=== PATIENT | female | born 1965 | race African-American/Black ===

== ENCOUNTER 2017-04-27 23:16 | Emergency (ER) | payer OTHER ==
[2017-04-28] MEDS ORDERED: Lidocaine 2% Jelly 5 ML TUBE ONE (01:33)
== END 2017-04-28 04:00 ==
LOC: ERS 23:16
DX: Z43.1 Encounter for attention to gastrostomy (principal); F03.90 Unspecified dementia, unspecified severity, without behavioral disturbance, psychotic disturbance, mood disturbance, and anxiety; F31.9 Bipolar disorder, unspecified; F41.9 Anxiety disorder, unspecified; K59.00 Constipation, unspecified; K21.9 Gastro-esophageal reflux disease without esophagitis; Z79.899 Other long term (current) drug therapy

== ENCOUNTER 2017-04-28 11:57 | Day surgery (SDC) | payer OTHER ==
[2017-04-28] MEDS ORDERED: Lidocaine 1% PF 5 ML VIAL ONE (13:05)
[2017-04-28] MEDS ORDERED: Propofol 200 MG/20 ML VIAL ONE (13:05)
--- NOTE | 2017-04-29 09:24 | OP ---
DATE OF SURGERY: 04/28/2017 SURGEON: Juan Manuel Stevenson M.D. OPERATIVE PROCEDURE: Esophagogastroduodenoscopy with endoscopic gastrostomy tube placement. PREOPERATIVE DIAGNOSES: Dementia, dysphagia. PROCEDURE IN DETAIL: The patient was placed on her back and was given sedation by Anesthesia Department. A bite block was placed to protect the teeth. A Pentax video gastroscope under direct vision passed down the oropharynx, past the GE junction, into the stomach, and subsequently into the descending duodenum. The esophageal mucosa was normal. No incidental lesions. The GE junction, no pathology seen. The fundus, cardia, gastric body, gastric antrum, and duodenum, no pathology seen. The patient had a previous G-tube site. It was elected to use the same site for G-tube placement. A guidewire was introduced into the stomach through the opening. The wire was grasped with polypectomy snare and pulled outside the mouth. To the end of the guidewire protruding outside the mouth, a gastrostomy tube was connected. The wire was pulled back retrograde and the tube left in place. The patient rescoped again to confirm proper placement of G-tube. No complications noted. The stomach was decompressed and the scope removed. DISCHARGE PLANNING: This is a 52-year-old -[place] female who came in for an EGD and PEG tube placement. She underwent surgery. She did well after the procedure. She is being discharged back to the long-term and will start the feeding later on today. [facility]
== END 2017-04-28 15:59 | disposition home or self-care (01) ==
LOC: ER/OP 11:57
PROVIDERS: ATTEND Internal Medicine Gastroenterology
PROC: 0DH63UZ Insertion of Feeding Device into Stomach, Percutaneous Approach (ICD-10-PCS; principal; 2017-04-28)
DX: R13.10 Dysphagia, unspecified (principal); F03.90 Unspecified dementia, unspecified severity, without behavioral disturbance, psychotic disturbance, mood disturbance, and anxiety; F32.9 Major depressive disorder, single episode, unspecified; K21.9 Gastro-esophageal reflux disease without esophagitis; Z79.899 Other long term (current) drug therapy; Z90.710 Acquired absence of both cervix and uterus; Z98.890 Other specified postprocedural states
CPT/HCPCS: 43760; J2001; J2704

== ENCOUNTER 2017-06-29 10:10 | Inpatient (IN) | payer OTHER ==
[2017-06-29] MEDS ORDERED: PHENYLEPHRINE-NS 100 MCG/ML 10 ML SYRINGE ONE ×2 (11:19→19:49)
[2017-06-29] MEDS ORDERED: Succinylcholine Chloride 20 MG/ML 10 ml SYRINGE FS ONE (11:19)
[2017-06-29] MEDS ORDERED: Ondansetron HCl/PF 4 MG/2 ML Vial ONE (11:19)
[2017-06-29] MEDS ORDERED: Glycopyrrolate 0.2 MG/ML 5 ML SYRINGE ONE (11:19)
[2017-06-29] MEDS ORDERED: Iopamidol 370 76% 50 ML VIAL FS ONE (11:48)
[2017-06-29] MEDS ORDERED: ISOVUE-370 76%-LOCM 1 ML ONE (11:48)
[2017-06-29 12:43] LABS: INR-International Normal Ratio 1.2; PTT 33.3 SEC (22.9-36.1); Prothrombin Time 15.7 SEC (12.0-14.7)
[2017-06-29 12:49] LABS: ALT (SGPT) 50 U/L (8-55); AST (SGOT) 122 U/L (5-34); Albumin 2.3 g/dL (3.5-5.0); Alkaline Phosphatase 76 U/L (40-150); Anion Gap 13 mmol/L (10-20); BUN (Urea Nitrogen) 60 mg/dL (9.8-20.1); Bilirubin, Total 0.6 mg/dL (0.2-1.2); CK (CPK) 1525 U/L (29-168); Calc. Creatinine Clearance 0 mL/min (70-130); Calcium 8.6 mg/dL (7.8-10.44); Carbon Dioxide 22 mmol/L (22-29); Chloride 102 mmol/L (98-107); Estimated GFR-MDRD 40; Globulin 5.5 g/dL (2.4-3.5); Glucose 101 mg/dL (70-105); Lipase 53 U/L (8-78); Protein, Total 7.8 g/dL (6.0-8.3); Sodium 132 mmol/L (136-145)
[2017-06-29 12:54] LABS: Troponin I 0.256 ng/mL (< 0.028)
[2017-06-29 13:00] LABS: Band 56 % (5-11); Hemoglobin 12.7 g/dL (12.0-16.0); Lymphocytes 5 % (21-51); MDiff Complete? YES; Macrocytosis SLIGHT = 6-15 cells (100X) (0-5/hpf); Mean Corpuscular HGB CONC 32.6 g/dL (32.0-36.0); Mean Corpuscular Hemoglobin 35.5 pg (27.0-31.0); Mean Platelet Volume 13.6 fL (7.4-10.4); Neutrophil 38 % (42-75); PLT Morphology Comment Appears Decreased; Platelet Count 60 thou/uL (130-400); RBC Distribution Width 12.1 % (11.5-14.5); Reactive Lymphocytes 1 % (0-10); Red Blood Cell (RBC) Count 3.59 mill/uL (4.20-5.40); Reflex for Review?? YES; Target Cells SLIGHT = 2-5 cells (100X) (0-1/hpf); Vacuoles MODERATE; White Blood Cell (WBC) Count 17.7 thou/uL (4.8-10.8)
--- NOTE | 2017-06-29 13:10 | RAD ---
CHEST ONE VIEW: HISTORY: Fever. COMPARISON: Chest one view from 07/07/2016. FINDINGS: There is a patchy left lower lobe air space opacities. Small right effusion. Compressive atelectasi s in the right lower lobe. No pneumothorax. IMPRESSION: 1. Left lower lobe air space opacity, concerning for infection. 2. Small right effusion. Followup after treatment is recommended. POS: [facility]
[2017-06-29 14:13] LABS: Bilirubin Negative (Negative); Blood, Urine Negative (Negative); Clarity CLEAR (Clear); Glucose, Urine (Dipstick) Negative (Negative); Leukocyte Trace (Negative); Nitrite Negative (Negative); Protein, Urine (Dipstick) 30 mg/dL (Neg-Trace); Specific Gravity, Urine 1.033 (1.002-1.036); pH, Urine 5.5 (5.0-9.0)
[2017-06-29] MEDS ORDERED: Piperacillin/Tazobactam 3.375 GM in Sodium Chloride 0.9% 100 ML IVPB SCH ×2 (14:15→19:45)
[2017-06-29 14:26] LABS: Bacteria/HPF None Seen HPF (None Seen); Pathc Cast-AUWi Flag 1.35 (0-2.49)
[2017-06-29 14:42] LABS: Hyaline Casts/LPF 0-3 HYALINE CAST LPF (0-3 Hyaline); Transitional Epithelial 0-3 HPF (0-3); Yeast-All Forms None Seen HPF (None Seen)
[2017-06-29] MEDS ORDERED: Fentanyl 100 MCG/2 ML VIAL ONE (14:44)
--- NOTE | 2017-06-29 14:46 | CT ---
ABDOMEN CT WITH CONTRAST PELVIC CT WITH CONTRAST: Date: 06/29/17 COMPARISON: 08/22/16. HISTORY: Emesis. alf patient. Tachycardia. Patient is aphasic. TECHNIQUE: An abdomen and pelvic CT are performed with IV and oral contrast. Coronal reformatted images are subm itted for interpretation. FINDINGS: Small to moderate right and minimal left sided pleural effusions. Adjacent consolidation may be due t o atelectasis, pneumonia, or aspiration. There is a 2.0 cm bulla in the right lung parenchyma. Heart size is within normal limits. No pericardial fluid. The descending thoracic aorta and abdominal aorta have normal caliber. No periaortic fat stranding. Limited evaluation of the abdomen due to motion degradation. The liver, spleen, pancreas, and adrenal glands have appropriate enhancement. Gallbladder is unremarkable. Symmetric enhancement of the kidneys. Bilaterally, no obstructive uropathy. No gastrohepatic, retrocrural, or periportal lymphadenopathy. No mesenteric mass, lymphadenopathy, free air, or free fluid. Percutaneous feeding tube is noted within the stomach. Multiple normal caliber small bowel loops. Ileocecal junction is normal. Normal caliber appendix. Air attenuation in the wall of the cecum and ascending colon. This air attenuation also extends in the p roximal ascending colon. Air is in the nondependent portion. There is concern for pneumatosis. PELVIC CT: Urinary bladder is unremarkable. Surgically absent uterus. No pelvic mass, lymphadenopathy, free air, or free fluid. Chronic changes in the spine are noted. IMPRESSION: 1. Pneumatosis involving the right hemicolon. 2. Bilateral pleural effusions with bibasilar consolidation as described above. Results of study discussed with Mag on 06/29/17 at 1430 hours. CODE CR. POS: [facility]
[2017-06-29] MEDS ORDERED: Norepinephrine 8 MG/250 ML BAG IVPB PRN (15:40)
[2017-06-29 17:33] LABS: Lactic Acid 6.7 mmol/L (0.5-2.2)
--- NOTE | 2017-06-29 18:18 | CON ---
DATE OF CONSULTATION: 06/29/2017 CONSULTING PHYSICIAN: Dr. Juventino Martinez from the Hospitalist group. REASON FOR CONSULTATION: Critical care management. HISTORY OF PRESENT ILLNESS: This is a 52-year-old female who has a history of a traumatic brain inju ry. She was brought into the emergency room today with sepsis type syndrome. She does not communica te with anything more than just screens and while gestures with her arms. PAST MEDICAL HISTORY: 1. 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 2. Dementia. PAST SURGICAL HISTORY: PEG tube placement in the past, also hysterectomy. ALLERGIES: None. SOCIAL HISTORY: Does not smoke, does not drink, does not consume alcohol. Lives in a long-term [facility]. MEDICATIONS: Prior to admission, trazodone 50 mg daily, Claritin 10 mg daily, folate 1 mg daily, Luciano cept 10 mg daily, docusate 100 mg b.i.d., Depakote 750 mg b.i.d., vitamin B12 1000 mcg daily, sorbitr ate acid 500 mg b.i.d., acetaminophen 650 mg as needed. REVIEW OF SYSTEMS: Unobtainable secondary to her altered mental status. PHYSICAL EXAMINATION: VITAL SIGNS: Pulse is 128, O2 sat 94%, respiratory rate 33, blood pressure 210/100. GENERAL: She is following in bed, screams any time you touch her. HEENT: Her pupils are reactive. Oropharynx clear. NECK: No JVD. LUNGS: Clear to auscultation anteriorly. CARDIOVASCULAR: S1, S2 tachycardic. ABDOMEN: Mildly tender to palpation on the right. EXTREMITIES: Mottled. LABORATORY DATA: Sodium 132, potassium 5, chloride 102, CO2 22, BUN 60, creatinine 1.6, glucose 101, lactate 4.6. CPK 1525. Troponin 0.26. INR 1.2. White blood count 17.7, hematocrit 39.1, platelet count 60. Her CT of the abdomen demonstrated air in the wall of the right colon. She also has bila teral small effusions. ASSESSMENT: 1. Likely ischemic right colon and possibly even infarcted colon. 2. Sepsis syndrome. PLAN: The patient is DNR. I have spoken with Dr. Martinez. The plan is to be fluid resuscitation, Le vophed as needed. She may end up going to the OR if felt stable enough by Dr. Young. I have revie wed the orders and agree with current management.
[2017-06-29] MEDS ORDERED: Midazolam HCl 2 mg/2 ml Vial ONE ×2 (19:32→20:27)
[2017-06-29] MEDS ORDERED: Fentanyl 250 MCG/5 ML VIAL ONE ×3 (19:32→19:52)
[2017-06-29] MEDS ORDERED: Albumin 5% 500 ML ONE (19:47)
[2017-06-29] MEDS ORDERED: Bupivacaine/Epinephrine 0.25% 30 ML VIAL ONE (20:03)
[2017-06-29] MEDS ORDERED: Phenylephrine 10 MG/NS 250 ML 250 ML ONE (20:11)
[2017-06-29] MEDS ORDERED: Piperacillin/Tazobactam 3.375 GM VIAL ONE (20:32)
--- NOTE | 2017-06-29 20:52 | CON ---
DATE OF CONSULTATION: 06/29/2017 CHIEF COMPLAINT: Vomiting and tachycardia. HISTORY: Ms. Lopes is a 52-year-old noncommunicative woman with advanced dementia, who was in her [facility] state of health by report from the retirement until yesterday when she began throwing up. Thi s morning she looked worse, so they brought her into the emergency room where she was found to be sig nificantly tachycardic and agitated. The source of her agitation could not be determined although by report she is somewhat agitated at baseline. Therefore, a CT of chest, abdomen, and pelvis was perf ormed which showed atelectasis versus infiltrate as well as pneumatosis of the right colon. The tanvi ent is completely noncommunicative. Her mother was at the bedside earlier, but has since left, and n o further recent history is available or obtainable. PAST MEDICAL HISTORY: Includes dementia, dysphagia, contractures due to nonambulatory bed bound stat us, history of depression. PAST SURGICAL HISTORY: Hysterectomy and multiple PEG tube placements by Dr. Stevenson. ALLERGIES: She has no known drug allergies. MEDICATION LIST: From the retirement includes multiple vitamins, Aricept, trazodone, Depakote, and Prostat. PHYSICAL EXAMINATION: VITAL SIGNS: The patient is significantly tachycardic with a heart rate of 130. Blood pressure is n ormal. Respiratory rate is somewhat elevated, but O2 sats on room air are normal as well. GENERAL: Reveals a somewhat consolable 52-year-old woman in an agitated state, moving about in the b ed, and pulling up things. She is unable to follow commands or respond to questions, but does calm d own somewhat to soothing kind of voice. She is not flushed or toxic, but she is slightly diaphoretic . HEENT: Unremarkable. NECK: Supple, without lymphadenopathy or thyroid nodules. HEART: Tachycardic, but regular without murmurs, rubs, or gallops. LUNGS: Clear to auscultation anteriorly although lung sounds are difficult to hear due to frequent v ocalization. ABDOMEN: Nondistended, but firm. Bowel sounds are not appreciated. She is not rigid, but may have some guarding. She does not exhibit definite rebound, but examination is very difficult to interpret . No palpable masses or hernias. PEG tube is in place with some clear fluid on the dressings consis tent with drainage around the PEG tube. EXTREMITIES: Contracted in cross legged position. She has a decubitus ulcer of the underlying foot, but no erythema or streaking. There is some soft stool in the diaper, which is not grossly bloody. NEUROLOGIC: Contracted lower extremities, nonverbal, patient with severe dementia. PSYCHIATRIC: Unable to evaluate. LABORATORY DATA: White count is elevated at 17,000. She had some labs drawn yesterday morning and h er white count was elevated at 18,000. At that time, H&H are 12 and 39, which are up somewhat from h er baseline. Platelets are low at 60, but seemed to have run low for some time now. Her coags are u nremarkable. Her electrolytes show acute renal insufficiency with a BUN of 60 and a creatinine of 1. 62. This is up from her baseline of 29 and 0.71 back in May and yesterday she was 33 and 1.41. Lactate is high at 4.6, CK-MB is high at 12. Troponin is high at 0.256. CK yesterday was high at 1 525. UA shows trace ketones and 30 protein, trace leukocyte esterase. CT images are reviewed and I agree with the written report. The patient appears to have fairly widespread pneumatosis of her righ t colon. No free air, no significant free fluid. The patient has a surgically absent uterus. ASSESSMENT: Pneumotosis coli. It is unclear whether this was a precipitating event or a consequence of severe dehydration. She has acute renal insufficiency and need resuscitation and antibiotics and careful monitoring of her urine output. If her condition does not improve, she will require diagnos tic laparoscopy and if evidence of colon ischemia is seen, then a right colectomy would be recommende d. The patient's family is not currently available and she has just lost her IV access. The ER is w orking on further resuscitating her. I will continue to follow closely and she will likely proceed t o the operating room later tonight or tomorrow.
--- NOTE | 2017-06-29 22:25 | RAD ---
PORTABLE CHEST 06/29/17 PROVIDED CLINICAL HISTORY: Central line placement. FINDINGS/IMPRESSION: Comparison is made with the study dated 06/29/17, time 12:31 p.m. Examination is rotated, limiting assessment. Interval placement of right sided IJ central line with t ip overlying the expected location of the SVC/right atrium junction. Additional significant interval change with respect to the prior examination is not apparent. There is no evidence for pneumothorax. POS: [facility]
[2017-06-30] MEDS ORDERED: HumaLOG 300 UNITS/3 ML VIAL SC PRN (00:06)
[2017-06-30] MEDS ORDERED: Dextrose 5% in Water 1,000 ML IV PRN (00:06)
[2017-06-30] MEDS ORDERED: Norepinephrine 8 MG/0.9% NS 250 ML IVPB SCH (00:06)
[2017-06-30] MEDS ORDERED: Dextrose 50% Abboject 50 ML SYRINGE SLOW IVP PRN (00:06)
[2017-06-30] MEDS ORDERED: Morphine 2 MG/ML SYRINGE SLOW IVP PRN ×2 (00:20)
[2017-06-30] MEDS ORDERED: Morphine 10 MG/ML CARPUJECT SLOW IVP PRN ×2 (00:21→00:22)
[2017-06-30] MEDS ORDERED: Piperacillin/Tazobactam 4.5 GM in Sodium Chloride 0.9% 100 ML IVPB SCH ×2 (00:30→03:00)
[2017-06-30] MEDS ORDERED: Pantoprazole 40 MG VIAL IVP SCH (00:30)
[2017-06-30] MEDS ORDERED: Norepinephrine 8 MG/0.9% NS 250 ML IVPB PRN (01:15)
[2017-06-30] MEDS: Sodium Chloride 0.9% 1,000 ML IV SCH ×4 (01:30→18:28)
[2017-06-30 01:31] LABS: Anion Gap 15 mmol/L (10-20); BUN (Urea Nitrogen) 42 mg/dL (9.8-20.1); CK (CPK) 789 U/L (29-168); Calc. Creatinine Clearance 74 mL/min (70-130); Calcium 7.7 mg/dL (7.8-10.44); Carbon Dioxide 17 mmol/L (22-29); Chloride 108 mmol/L (98-107); Estimated GFR-MDRD 61; Glucose 61 mg/dL (70-105); Magnesium 1.5 mg/dL (1.6-2.6); Phosphorus 3.9 mg/dL (2.3-4.7); Potassium 4.9 mmol/L (3.5-5.1); Sodium 135 mmol/L (136-145)
[2017-06-30 01:34] LABS: Troponin I 0.169 ng/mL (< 0.028)
[2017-06-30 01:40] LABS: Band 35 % (5-11); Hemoglobin 9.8 g/dL (12.0-16.0); Lymphocytes 9 % (21-51); MDiff Complete? YES; Mean Corpuscular Hemoglobin 36.1 pg (27.0-31.0); Mean Platelet Volume 13.2 fL (7.4-10.4); Monocytes 6 % (0-10); Neutrophil 50 % (42-75); PLT Morphology Comment Appears Decreased; Platelet Count 45 thou/uL (130-400); RBC Distribution Width 12.3 % (11.5-14.5); Red Blood Cell (RBC) Count 2.71 mill/uL (4.20-5.40); White Blood Cell (WBC) Count 15.3 thou/uL (4.8-10.8)
[2017-06-30 01:47] LABS: CKMB 10.2 ng/mL (0-6.6); Critical Call CKMBM RESULT DECREASING
[2017-06-30] MEDS: Acetaminophen 1,000 MG in Premix Bag 1 BAG IVPB SCH ×4 (02:17→20:22)
[2017-06-30] MEDS: Piperacillin/Tazobactam 3.375 GM in Sodium Chloride 0.9% 100 ML IVPB SCH ×4 (02:37→20:23)
[2017-06-30] MEDS: Vancomycin HCl 750 MG in Sodium Chloride 0.9% 250 ML 250 ML IVPB SCH ×2 (05:18→18:26)
[2017-06-30 06:18] LABS: CKMB 8.3 ng/mL (0-6.6); Critical Call CKMBM RESULT DECREASING
[2017-06-30 06:20] LABS: Band 39 % (5-11); Eosinophils 1 % (0-10); Hemoglobin 8.6 g/dL (12.0-16.0); Lymphocytes 6 % (21-51); MDiff Complete? YES; Mean Corpuscular HGB CONC 32.4 g/dL (32.0-36.0); Mean Corpuscular Hemoglobin 35.9 pg (27.0-31.0); Mean Platelet Volume 13.2 fL (7.4-10.4); Monocytes 4 % (0-10); Neutrophil 50 % (42-75); PLT Morphology Comment Appears Decreased; Platelet Count 45 thou/uL (130-400); Red Blood Cell (RBC) Count 2.41 mill/uL (4.20-5.40); White Blood Cell (WBC) Count 13.3 thou/uL (4.8-10.8)
[2017-06-30 06:23] LABS: ALT (SGPT) 36 U/L (8-55); AST (SGOT) 84 U/L (5-34); Albumin 2.1 g/dL (3.5-5.0); Alkaline Phosphatase 43 U/L (40-150); Anion Gap 12 mmol/L (10-20); BUN (Urea Nitrogen) 39 mg/dL (9.8-20.1); Bilirubin, Total 0.8 mg/dL (0.2-1.2); CK (CPK) 640 U/L (29-168); Calc. Creatinine Clearance 80 mL/min (70-130); Calcium 7.8 mg/dL (7.8-10.44); Carbon Dioxide 21 mmol/L (22-29); Chloride 110 mmol/L (98-107); Estimated GFR-MDRD 67; Globulin 3.6 g/dL (2.4-3.5); Glucose 72 mg/dL (70-105); Lactic Acid 4.1 mmol/L (0.5-2.2); Magnesium 1.5 mg/dL (1.6-2.6); Phosphorus 3.9 mg/dL (2.3-4.7); Potassium 4.7 mmol/L (3.5-5.1); Protein, Total 5.7 g/dL (6.0-8.3); Sodium 138 mmol/L (136-145)
--- NOTE | 2017-06-30 11:10 | PDOC.OP ---
Operative Note - Operative Note Operative Note: PROCEDURE: Diagnostic laparoscopy DATE OF PROCEDURE: 06/29/2017 SURGEON: Shane Young M.D. ASST.: Jane Fulton MS 3 PREOPERATIVE DIAGNOSES: Pneumatosis of the right colon POSTOPERATIVE DIAGNOSIS: Viable appearing right colon and intestine without any external evidence of inflammation or ischemia. HISTORY: Patient is a 52-year-old woman with severe dementia who [facility] room for vomiting and tachycardia and concern for pneumonia. CT of the abdomen showed pneumatosis of the right colon and she had an elevated lactate and White blood cell count. She was resuscitated with fluids and given IV antibiotics but her tachycardia and apparent distress persisted so recommendation was made to proceed with diagnostic laparoscopy and possible hemicolectomy and ileostomy if the colon appeared nonviable PROCEDURE IN DETAIL: After informed consent was obtained from the patient's mother who is her medical power of gearcase assembler and appropriate preoperative antibiotics were continued the patient was taken to the operating room she was placed in supine position and general endotracheal anesthesia was administered. She was prepped and draped in a standard sterile fashion with the PEG tube excluded from the field. Local anesthesia was infused the skin and subcutaneous tissues at the level of the umbilicus. A transverse skin incision was made the fascia was elevated and Veress needle placed into the abdominal cavity without difficulty. Opening pressure was 2 and carbon dioxide gas easily insufflated to an intra-abdominal pressure of 15 which the patient tolerated well. The Veress needle was withdrawn and a 5 mm [place] port advanced under direct laparoscopic vision into the abdominal cavity which was carefully examined. There is no evidence of necrotic bowel or peritonitis. There was no fluid noted in the abdominal cavity. Local anesthesia was infused the skin and subcutaneous tissues of the lower midline and an additional 5 mm ports placed under direct laparoscopic vision. The right colon was carefully examined and appeared to be completely viable. There is some chronic-appearing adhesions to the lateral sidewall which were not taken down but there was no evidence of inflammation or ischemia and the colon appeared soft pink and normal. The remainder of the intra -abdominal contents were briefly examined and no other abnormal inflamed or ischemic appearing bowel loops were appreciated. The lower midline trocar was removed and hemostasis verified. The intra-abdominal dioxide was allowed to desufflate following which the umbilical trocar was removed. Due to the patient' s thin body habitus the fascia was visible at the umbilical site so this was closed under direct vision with 0 Vicryl on a UR 6 needle with excellent technical result. The skin incisions were closed with 4-0 Monocryl subcutaneous sutures and Dermabond dressings were placed. The patient was taken to the recovery room in good condition. Estimated blood loss minimal. There were no complications. There were no specimens.
--- NOTE | 2017-06-30 11:36 | PRG ---
DATE OF SERVICE: 06/30/2017 Ms. Lopes is sleeping today. She is much calmer and less agitated than she was yesterday. T-max wa s 100.3 and T-current is 98.6. Her heart rate has steadily come down from the 130s and is now in the 100 range. Her blood pressure has been running on the low to low-normal side, but her urine output has been good, and her other labs are correcting. Her white count has gone from 17,000-13,000 and he r BUN and creatinine have come down to 39 and 1.04. Her lactate is somewhat slower to correct, but h as come down to 4.1 from a high of 8.6. Her creatine kinase has come down from 1500-640. Her abdome n is soft and nondistended. She does not exhibit any tenderness when I palpated her abdomen, and she has no rigidity, rebound, or guarding today. ASSESSMENT: Pneumotosis coli of unclear etiology. This may be infectious or ischemic. Given the anton sy's overall clinical appearance, I would suspect the latter, but this appears to be slowly resolv ing. I have put in a consult for Dr. Stevenson, who is her organ tuner electronic to further evaluate he r and I have ordered stool samples, although she has not produced a stool sample yet. I will continu e to follow her along with the medical team, but she does seem to be slowly responding to medical medina atment, and I do not anticipate any imminent need for surgery.
--- NOTE | 2017-06-30 12:38 | PRG ---
DATE OF SERVICE: 06/30/2017 SERVICE: Pulmonary Medicine. INTERVAL HISTORY: The patient is doing okay from a respiratory standpoint. He is breathing comforta eric. Outside of that, I cannot really glean any information from her because of her static encephalo clarke. Otherwise, there were no events overnight. PHYSICAL EXAMINATION: VITAL SIGNS: Afebrile, pulse 97, blood pressure 94/44, respirations 24, saturation 100% on 2 liters nasal cannula. GENERAL: The patient is awake. She is alert, but she does not attend. HEENT: Normocephalic, atraumatic. Sclerae are white, conjunctivae pink. Oral mucosa is moist witho ut lesions. LUNGS: Decent air entry. There are some rhonchi present. HEART: Normal rate, regular. ABDOMEN: Soft, nontender, nondistended. Bowel sounds are hypoactive. GENITOURINARY: Orr catheter in place. LABORATORY DATA: WBC 13.3, hemoglobin 8.6, platelets 45,000. Neutrophil count is 50% with 39% bands which is up trending. INR 1.2. Lactate is decreasing to 4.1. Creatinine 1.04 and down trending. Basic metabolic profile is otherwise unremarkable. Magnesium is 1.5. CK 640. Liver function studie s are otherwise unremarkable. Troponin is stable at 0.17. Lipase was previously unremarkable. Urin alysis is unremarkable. One out of two blood cultures is growing coag negative staph. Urine culture is negative to date as well as influenza. IMAGING: Chest x-ray demonstrates severe rotation of the chest. There are some air bronchograms ove rlying the left lung. There is a right IJ that is in good position. No evidence for pneumothorax is there. Minor fissure is evident suggestive of some degree of volume overload. CT of abdomen and pe lvis demonstrates pneumatosis coli with small bilateral pleural effusions are also present. ASSESSMENT: 1. Septic shock secondary to peritonitis. 2. Pneumatosis coli. 3. 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 4. Acute kidney injury, resolving. PLAN: We will continue antibiotic directed at issues. Pulmonary Critical Care will continue to f ollow for the time being. Levophed will be weaned away as tolerated. Magnesium will be replaced and we will recheck another level tomorrow morning. The patient remains critically ill and there is a p ossibility that things will get worse before they improved. At this point, she is protecting her air way and does not require intubation. Pulmonary Critical Care will continue to follow.
[2017-06-30] MEDS ORDERED: Magnesium 2 GM/NS 0.9% 100 ML 2 GM in Premix Bag 1 BAG IVPB SCH ×4 (13:30)
--- NOTE | 2017-06-30 15:24 | PDOC.PN ---
- Subjective Encounter Start Date: 06/30/17 Encounter Start Time: 08:45 Pt seen earlier on rounds. Taken to Or last evening by Dr Young for exploratory laparoscopy. Bowel appeared viable, no resection made. recommended resuscitation. PT BP better, weaned off of Levophed after adequate fluids Pt sleepy, but earlier was active as she was [facility] labs better, afebrile, no acute events otherwise noted. pt nonverbal - Objective Resuscitation Status: DNR MAR Reviewed: Yes Vital Signs & Weight: Vital Signs (12 hours) Temp Pulse Resp BP Pulse Ox 06/30/17 12:10 99 F 97 20 06/30/17 12:00 99.0 F 97 20 89/54 L 100 06/30/17 08:45 98.6 F 109 H 24 H 100 06/30/17 07:38 98.6 F 109 H 24 H 94/44 L 100 06/30/17 06:20 98.8 F 107 H 22 H 96/51 L 100 06/30/17 05:11 99.3 F 107 H 20 92/46 L 100 Weight Admit Weight 180 lb 1 oz Weight 180 lb 1 oz I&O: 06/29/17 06/30/17 07/01/17 06:59 06:59 06:59 Intake Total 1200 1400 Output Total 710 550 Balance 490 850 Result Diagrams: 06/30/17 05:15 06/30/17 05:15 Additional Labs: Accuchecks 06/30/17 06/30/17 11:47 05:49 POC Glucose 75 76 Radiology Reviewed by me: Yes EKG Reviewed by me: Yes Phys Exam - Physical Examination Constitutional: NAD HEENT: moist MMs, sclera anicteric, oral pharynx no lesions Neck: no nodes, no JVD, supple, full ROM Respiratory: no wheezing, no rales, no rhonchi, clear to auscultation bilateral Cardiovascular: RRR, no significant murmur, no rub reg but tachy Gastrointestinal: soft, no distention, positive bowel sounds Musculoskeletal: pulses present, edema present Neurological: non-focal, moves all 4 limbs Lymphatic: no nodes Skin: no rash, normal turgor, cap refill <2 seconds Dx/Plan (1) Pneumatosis coli Code(s): K63.89 - OTHER SPECIFIED DISEASES OF INTESTINE Status: Acute Comment: s/p lap last evening, medical rx for now. Abx, fluids, pressors if needed. Surgey following (2) Septic shock Code(s): A41.9 - SEPSIS, UNSPECIFIED ORGANISM; R65.21 - SEVERE SEPSIS WITH SEPTIC SHOCK Status: Acute Comment: off pressors, LA improving. continue aggressive IV fluids (3) NSTEMI (non-ST elevated myocardial infarction) Code(s): I21.4 - NON-ST ELEVATION (NSTEMI) MYOCARDIAL INFARCTION Status: Acute Comment: due to severe sepsis with shock. trending down. (4) KAE (acute kidney injury) Code(s): N17.9 - ACUTE KIDNEY FAILURE, UNSPECIFIED Status: Acute Comment: Cr improved this morning, continue IV fluids - Plan cont current plan of care, continue antibiotics * .
[2017-06-30] MEDS ORDERED: Sodium Chloride 0.9% 1,000 ML IV SCH (15:45)
--- NOTE | 2017-06-30 17:35 | HP ---
DATE OF ADMISSION: 06/29/2017 TIME OF SERVICE: 15:00. CHIEF COMPLAINT: One-day history of nausea and vomiting. HISTORY OF PRESENT ILLNESS: Ms. Lopes is a 52-year-old -[place] female, who is nonverbal. She sustained a brain injury 7 or 8 years ago and is non-conversant. She is a resident of a [facility]. She gets tube feeds and is completely aphasic. Patient apparently had some nausea and vomiting and increased heart rate and was sent by her snf to the emergency department for evaluation. They reported no fever; however, the family does re port that she had a fever while at the snf and then was given medicines for that and had no further recurrence. She started having problems about 2 days ago, worsened yesterday, and was subsequently brought to the emergency department the day of admission on 06/29/2017 for evaluation. I spoke at length with the mother on the telephone; the patient is DNR. They do not want to do CPR, electrical shocks, oral intubation, or BiPAP mask, but the pressors are okay. In the emergency department, she got some fluids. She got a CT scan of the abdomen. She was found t o have a white blood cell count of 17.7 with a left shift, 30% granulocytes and 56% bands. She has h ad a platelet count low at 60,000. She had lactic acid of 5, troponin I of 0.256, and a creatinine u p 1.62, which is more than double her normal. We are simply called for admission and placed on telem etry. On my arrival, the patient abruptly decompensated. She became hypotensive and tachycardic. Blood pr essure was 54/27 and heart rate was in the 130s. The ER doctor immediately came and placed a central venous catheter and resumed IV fluids. Apparently, she had lost her IV during the CT scan. The patient is otherwise nonverbal. She is crying out and has some obvious discomfort. PAST MEDICAL HISTORY: 1. Dementia. 2. 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 She is n.p.o. and gets all of her meds and feedings through the gastrostomy tube. 3. Stage 4 pressure ulcer in the past has healed. 4. Bipolar disorder. 5. Depression/anxiety. 6. GERD. PAST SURGICAL HISTORY: Include, 1. PEG tube placement. 2. Hysterectomy. HOME MEDICATIONS: Trazodone 50 mg daily, Depakote 125/5, 7.5 mL b.i.d., which becomes to about 187.5 mg. ALLERGIES: NKDA. FAMILY HISTORY: Negative for clotting or bleeding disorder. No immune dysfunction. SOCIAL HISTORY: Negative for habits x3. Otherwise, as above. REVIEW OF SYSTEMS: Unobtainable due to mental status and aphasia. PHYSICAL EXAMINATION: VITAL SIGNS: Temperature 98.1, pulse 126, blood pressure initially on arrival to the ER 115/78, resp iratory rate 26, satting 95% on room air; when I saw her she was 136, blood pressure 54/27 with a res piratory rate 25-30. GENERAL: She is diaphoretic. She is crying out and thrashing around. She is acutely ill. HEENT: Normocephalic, atraumatic. She has bilateral strabismus. Pupils are equal, round, and react juan miguel to light bilaterally. Mucous membranes are dry. She has no visible lesions. NECK: Supple. Normal carotid upstrokes without bruits. LUNGS: Clear are anteriorly; however, laterally and posteriorly, she does have some crackles heard a t both bases, left more than right. She has no prolonged expiratory phase. No wheezes. CARDIOVASCULAR: She is tachycardic and regular. I cannot appreciate murmurs. ABDOMEN: Abdomen is hard. It is not wood like, but it is certainly firm. She does have some obviou s discomfort with palpation diffusely. There is no rebound appreciable. A percutaneous endoscopic g astrostomy tube is intact. EXTREMITIES: Show no cyanosis, no clubbing. She has no edema. SKIN: Warm, moist, and well perfused without rashes or lesions. There is no mottling. NEUROLOGIC EXAM: Not testable, but she is moving all 4 of her extremities. MUSCULOSKELETAL EXAM: Normal to inspection. She has no palpable joint effusion. No inflamed joints . LABORATORY DATA: Sodium 132, potassium 5.0, chloride 102, bicarb 22, BUN 60, creatinine 1.62 and her baseline 0.7, glucose 101. Liver functions showed AST of 126, ALT of 50. Albumin is low at 2.3. CBC showed a white count of 17.7, the differential above, hemoglobin is 12.7, hematocrit of 39.1, juan telets of 60,000. CK is 1525, CK-MB of 12. Lactic acid 4.6, troponin I 0.256. RADIOGRAPHIC STUDIES: CT of the abdomen and pelvis shows right hemicolon pneumatosis. Chest x-ray showed a [id number] right and minimal left pleural effusions with adjacent atelect asis. ASSESSMENT AND PLAN: 1. Septic shock: The patient dropped her blood pressure despite getting fluids in the ER. We place d her on Levophed and gave her a total of 3 more liters of fluids. We will admit her to the critical care unit. Pressors is the maximal level of care we can provide. Dr. Young saw the [facility], suspects the source being her colon. We will contact her and let her know the current status and see if she thinks the patient is to go to surgery this evening. 2. Acute kidney injury: Creatinine 1.62. Secondary to septic shock, we will encourage use of IV fl uids. Watch for fluid overload. 3. Demand ischemia. Troponin I 0.256 due to her tachycardia and low blood pressure. 4. History of encephalopathy, chronic, due to her brain injury in the past. The patient was placed on broad-spectrum antibiotic with Zosyn. We will continue IV fluids and press ors tonight. We will ask Pulmonary Critical Care to evaluate and follow up on surgery recommendation s. Forty-five minutes of critical care was spent at the bedside.
[2017-06-30] MEDS: Pantoprazole 40 MG VIAL IVP SCH (20:22)
[2017-07-01] MEDS: Sodium Chloride 0.9% 1,000 ML IV SCH ×3 (02:32→13:59)
[2017-07-01] MEDS: Acetaminophen 1,000 MG in Premix Bag 1 BAG IVPB SCH (02:32)
[2017-07-01] MEDS: Piperacillin/Tazobactam 3.375 GM in Sodium Chloride 0.9% 100 ML IVPB SCH ×4 (02:32→20:15)
[2017-07-01] MEDS: Vancomycin HCl 750 MG in Sodium Chloride 0.9% 250 ML 250 ML IVPB SCH ×2 (05:36→06:39)
[2017-07-01 06:24] LABS: Anion Gap 9 mmol/L (10-20); BUN (Urea Nitrogen) 34 mg/dL (9.8-20.1); Calc. Creatinine Clearance 98 mL/min (70-130); Calcium 7.2 mg/dL (7.8-10.44); Carbon Dioxide 20 mmol/L (22-29); Chloride 113 mmol/L (98-107); Estimated GFR-MDRD 83; Glucose 62 mg/dL (70-105); Magnesium 1.3 mg/dL (1.6-2.6); Potassium 4.2 mmol/L (3.5-5.1); Sodium 138 mmol/L (136-145)
[2017-07-01 06:36] LABS: Vancomycin, Trough 14.3 ug/mL
[2017-07-01 07:10] LABS: Hemoglobin 9.2 g/dL (12.0-16.0); Mean Corpuscular HGB CONC 32.3 g/dL (32.0-36.0); Mean Corpuscular Hemoglobin 35.6 pg (27.0-31.0); Platelet Count 55 thou/uL (130-400); Red Blood Cell (RBC) Count 2.58 mill/uL (4.20-5.40)
[2017-07-01 07:46] LABS: #Basophils 0.1 thou/uL (0.0-0.2); #Eosinphils 0.4 thou/uL (0.0-0.7); #Lymphocytes 1.2 thou/uL (1.20-3.40); #Monocytes 0.5 thou/uL (0.11-0.59); #Neutrophils 4.9 thou/uL (1.40-6.50); %Neutrophils 68.8 % (42.0-75.0)
[2017-07-01 07:47] LABS: Band 35 % (5-11); Eosinophils 7 % (0-10); Lymphocytes 17 % (21-51); MDiff Complete? YES; Monocytes 7 % (0-10); Neutrophil 33 % (42-75); PLT Morphology Comment Appears Decreased; Polychromasia SLIGHT = 2-3 cells (100X) (0-2/hpf)
[2017-07-01] MEDS ORDERED: Magnesium Sulfate 4 GM in Sodium Chloride 0.9% 250 ML 250 ML IVPB SCH (08:15)
--- NOTE | 2017-07-01 08:28 | CON ---
DATE OF CONSULTATION: 06/30/2017 REFERRING PHYSICIAN: Dr. Shane Young - Dr. Juventino Martinez. REASON FOR CONSULTATION: Abdominal pain, vomiting, hypotension, abnormal CAT scan of the abdomen. HISTORY OF PRESENT ILLNESS: Ms. Diana Lopes is a 52-year-old female who is known to me from before. The patient has advanced dementia, a nonspecific neurological disorder. The pat ient is nonverbal. The patient is a senior care resident. The patient has had EGD and PEG tube juan cement done by me on multiple occasions. The patient has had dementia, dysphagia, and also contractu res of the extremities for several years. She also has history of depression. The patient was sent to the ER from the senior care yesterday morning because of hypotension and tachycardia and what vicente ears like sepsis. Since admission, the patient was seen by Dr. Young. An abdominal CAT scan done showed pneumatosis over the right colon area. The patient underwent a laparoscopy yesterday and as p er the operative report by Dr. Young, the colon was viable and did not show any evidence of ischemi c changes. It is not very clear what caused pneumatosis and hypotension. The possibilities include infectious colitis versus ischemic bowel disease. The patient also had tachycardia, hypotension, and also lactic acidosis. She has been receiving IV fluids and also Levophed for a while. She . Her blood pressure was around 90/62 and when I saw her this evening, the pressure was 102/47. The pa tient is actually back to close her baseline status. She is awake and nauseous. She appears comfort able. The patient's lab data show evidence of dehydration with what appears to be acute kidney injur y. Other abdominal findings include leukocytosis, bandemia of 56%. Today, the bands started c oming down to 39%. She is passing urine. The patient has no other relevant history. MEDICAL ILLNESSES: 1. Dementia. 2. Nonspecific neurological disorder. 3. Depression. 4. Dysphagia. 5. Hysterectomy. 6. EGD and PEG tube placement. ALLERGIES: None. SOCIAL HISTORY: The patient does not smoke or drink alcohol. MEDICATIONS: Include multiple vitamins, Aricept, trazodone, Depakote, and also tube feeding. REVIEW OF SYSTEMS: Unobtainable. PHYSICAL EXAMINATION: GENERAL: The patient is awake, makes some loud noises. She is in no distress. VITAL SIGNS: Today, her temperature is 98 degrees Fahrenheit, pulse is around 88, blood pressure 102 /47. HEENT: Conjunctivae clear. NECK: Supple. CARDIOVASCULAR SYSTEM: First and second heart sounds normal. LUNGS: Clear to auscultation. ABDOMEN: Soft and nondistended. She has a PEG tube . Abdomen is nontender. She does have bow el sounds. LABORATORY DATA: Yesterday, WBC 17,700, hemoglobin low at 8, hematocrit 26.8. The patient had bande cedric of 56% yesterday, has dropped to 39% today. Her BUN and creatinine are elevated at 39 and 1.4, r espectively. Lactic acid is 4.1. Her CPK total is high and also her CPK-MB fraction is high. There is possibility of NSTEMI infarction. CLINICAL IMPRESSION: 1. Hypotension, shock, and tachycardia. The patient had pneumatosis on CAT scan. It was confirmed by laparoscopy. However, as per the operative report, the colon does not appear to be necrotic or is chemic and appears viable and healthy. The etiology of her symptoms is unclear at the present time. The patient most likely has sepsis and there is also possibility of underlying ischemic bowel disea se. 2. Dementia. 3. Dysphagia. 4. Depression. 5. Dxd-LT-vpjzvfudn myocardial infarction. 6. Acute kidney injury. RECOMMENDATIONS: 1. The patient seems to be actually getting better. . Her blood pressure is around 99 to 100 at the present time. Her tachycardia has come down. Although her abdominal exam is actually very prashanth ign at the present time. Recommendation to hold the tube feeding for the time being. 2. Continue IV fluids and supportive care and if she does well, we may consider starting the tube ba ck in the next 24-48 hours.
[2017-07-01] MEDS ORDERED: FLU VACC QS2017-18 36 mo. & older 0.5 ML SYRINGE IM ONE (09:00)
--- NOTE | 2017-07-01 12:23 | PDOC.PN ---
- Subjective Encounter Start Date: 07/01/17 Encounter Start Time: 08:50 -: non-verbal pt much more awake and alert today, calm, gromaces with abd palpation, light or deep. no F/C, no N/V/D/C, TF not restarted yet. No acute events reported overnight. off pressors, BP stable case discussed with Dr Flynn face to face at the bedside, vanc stopped. - Objective Resuscitation Status: dnr MAR Reviewed: Yes Vital Signs & Weight: Vital Signs (12 hours) Temp Pulse Resp BP Pulse Ox 07/01/17 08:00 98.2 F 95 20 97 07/01/17 07:39 98.2 F 95 20 101/57 L 97 07/01/17 04:00 99 24 H 98/61 99 Weight Admit Weight 180 lb 1 oz Weight 183 lb 3 oz I&O: 06/30/17 07/01/17 07/02/17 06:59 06:59 06:59 Intake Total 1200 4325 350 Output Total 710 1690 270 Balance 490 2635 80 Result Diagrams: 07/01/17 05:35 07/01/17 05:35 Additional Labs: Accuchecks 07/01/17 06/30/17 06/30/17 11:34 23:58 17:36 POC Glucose 73 70 68 L Phys Exam - Physical Examination Constitutional: NAD HEENT: PERRLA, moist MMs, sclera anicteric, oral pharynx no lesions Neck: no nodes, no JVD, supple, full ROM Respiratory: no wheezing, no rales, no rhonchi, clear to auscultation bilateral Cardiovascular: RRR, no significant murmur, no rub Gastrointestinal: soft, no distention, positive bowel sounds diffusely tender Musculoskeletal: no edema, pulses present Neurological: non-focal, normal sensation, moves all 4 limbs Lymphatic: no nodes Skin: no rash, normal turgor, cap refill <2 seconds Dx/Plan (1) Pneumatosis coli Code(s): K63.89 - OTHER SPECIFIED DISEASES OF INTESTINE Status: Acute Comment: s/p lap 06/29 evening, medical rx for now. Abx, fluids, pressors if needed. Surgery following (2) Septic shock Code(s): A41.9 - SEPSIS, UNSPECIFIED ORGANISM; R65.21 - SEVERE SEPSIS WITH SEPTIC SHOCK Status: Resolved Comment: IV bolus as needed for presure, appears to be stable (3) NSTEMI (non-ST elevated myocardial infarction) Code(s): I21.4 - NON-ST ELEVATION (NSTEMI) MYOCARDIAL INFARCTION Status: Resolved Comment: due to severe sepsis with shock. trending down. (4) KAE (acute kidney injury) Code(s): N17.9 - ACUTE KIDNEY FAILURE, UNSPECIFIED Status: Resolved Comment : Back to baseline with fluids - Plan cont current plan of care, continue antibiotics, social security specialist * .
--- NOTE | 2017-07-01 14:24 | PRG ---
DATE OF SERVICE: 07/01/2017 SERVICE: Pulmonary Medicine. INTERVAL HISTORY: The patient is actually doing much better this morning. She is much more awake an d alert. She is essentially nonverbal still. She cannot provide any additional elements of the hist ory, but the nurses report no overnight events. PHYSICAL EXAMINATION: VITAL SIGNS: Afebrile, pulse 93, blood pressure 112/55, respirations 20 and saturation 100% on room air. GENERAL: The patient is awake and alert. She is in no apparent distress. HEENT: Normocephalic and atraumatic. Sclerae are white, conjunctivae pink. Oral and nasal mucosa i s moist without lesions. LUNGS: Excellent air entry. Dependent crackles are minimal. HEART: Normal rate and regular. ABDOMEN: Soft. It is tender to palpation. There is not much in the way of rebound or guarding. Blayne wel sounds are active. GENITOURINARY: Orr catheter in place. NEUROLOGIC: Grossly nonfocal. LABORATORY DATA: WBC 7.0, hemoglobin 9.2 and platelets 55,000. Neutrophils are 68% of the total cou nt and there is 35% bands, which is roughly stable. The lymphocyte count; however, is responding fernando daphnie. INR 1.2. Chloride 113. Basic metabolic profile is otherwise unremarkable. Calcium 7.2, magne sium 1.3. Creatinine is down trending to 0.86. All culture results are essentially negative to date . ASSESSMENT: 1. Septic shock secondary to peritonitis. 2. Pneumatosis coli, status post partial colectomy. 3. 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 4. Acute kidney injury, resolved. PLAN: At this point, the patient is returning to her usual state of health. She is clearing her sep sis profile very nicely. Magnesium is to be replaced today and we will recheck the level tomorrow. Vancomycin will be discontinued. From my perspective, she is stable for transition out of the ICU to the surgical unit. Once she arrives in the surgical unit, there will be no further requirements for inpatient Pulmonary Critical Care opinion. She is getting a little volume overload and a single dos e of Lasix will be provided.
[2017-07-01] MEDS: Pantoprazole 40 MG VIAL IVP SCH (20:17)
[2017-07-02] MEDS: Piperacillin/Tazobactam 3.375 GM in Sodium Chloride 0.9% 100 ML IVPB SCH ×4 (03:35→20:25)
[2017-07-02 04:55] LABS: Anion Gap 9 mmol/L (10-20); BUN (Urea Nitrogen) 24 mg/dL (9.8-20.1); Calc. Creatinine Clearance 112 mL/min (70-130); Calcium 7.4 mg/dL (7.8-10.44); Carbon Dioxide 19 mmol/L (22-29); Chloride 112 mmol/L (98-107); Estimated GFR-MDRD Greater than 90; Glucose 67 mg/dL (70-105); Magnesium 1.4 mg/dL (1.6-2.6); Potassium 3.5 mmol/L (3.5-5.1); Sodium 136 mmol/L (136-145)
[2017-07-02 06:02] LABS: Mean Corpuscular HGB CONC 32.9 g/dL (32.0-36.0); Mean Corpuscular Hemoglobin 35.9 pg (27.0-31.0); Platelet Count 63 thou/uL (130-400); Red Blood Cell (RBC) Count 2.51 mill/uL (4.20-5.40); White Blood Cell (WBC) Count 6.4 thou/uL (4.8-10.8)
[2017-07-02 06:03] LABS: Band 11 % (5-11); Eosinophils 2 % (0-10); Lymphocytes 17 % (21-51); MDiff Complete? YES; Macrocytosis SLIGHT = 6-15 cells (100X) (0-5/hpf); Monocytes 3 % (0-10); Neutrophil 67 % (42-75); Nucleated RBC 2 % (0); PLT Morphology Comment Appears Decreased
[2017-07-02] MEDS ORDERED: Magnesium Sulfate 4 GM in Sodium Chloride 0.9% 250 ML 250 ML IVPB SCH (07:00)
--- NOTE | 2017-07-02 13:19 | PDOC.PN ---
- Subjective Encounter Start Date: 07/02/17 Encounter Start Time: 11:15 -: non-verbal No acute events, no fevers, no chills, GTube to gravity with bilious output, no other issues. TF not restarted yet, surgery has them on hold. - Objective MAR Reviewed: Yes Vital Signs & Weight: Vital Signs (12 hours) Temp Pulse Resp BP Pulse Ox 07/02/17 11:42 98.6 F 93 22 H 117/77 96 07/02/17 08:04 98.9 F 97 22 H 134/81 98 07/02/17 08:00 98.9 F 97 22 H 07/02/17 04:00 99.0 F 99 20 106/74 98 Weight Admit Weight 180 lb 1 oz Weight 182 lb 14.4 oz I&O: 07/01/17 07/02/17 07/03/17 06:59 06:59 06:59 Intake Total 4325 2400 400 Output Total 1690 2570 50 Balance 2635 -170 350 Result Diagrams: 07/02/17 04:08 07/02/17 04:08 Additional Labs: Accuchecks 07/02/17 07/02/17 07/01/17 11:45 05:17 23:24 POC Glucose 73 67 L 64 L Phys Exam - Physical Examination Constitutional: NAD HEENT: PERRLA, moist MMs, sclera anicteric, oral pharynx no lesions Neck: no nodes, no JVD, supple, full ROM Respiratory: no wheezing, no rales, no rhonchi, clear to auscultation bilateral Cardiovascular: RRR, no significant murmur Gastrointestinal: soft, no distention diffusely tender as evidenced by grimace, scant bowel sounds Musculoskeletal: no edema, pulses present Neurological: non-focal, normal sensation, moves all 4 limbs Lymphatic: no nodes Skin: no rash, normal turgor, cap refill <2 seconds Dx/Plan (1) Pneumatosis coli Code(s): K63.89 - OTHER SPECIFIED DISEASES OF INTESTINE Status: Acute Comment: s/p lap 06/29 evening, medical rx for now. Abx continue, to per GTube when getting feeds (2) Septic shock Code(s): A41.9 - SEPSIS, UNSPECIFIED ORGANISM; R65.21 - SEVERE SEPSIS WITH SEPTIC SHOCK Status: Resolved Comment: IV bolus as needed for presure, appears to be stable, maintenance fluids off (3) NSTEMI (non-ST elevated myocardial infarction) Code(s): I21.4 - NON-ST ELEVATION (NSTEMI) MYOCARDIAL INFARCTION Status: Resolved Comment: due to severe sepsis with shock. (4) KAE (acute kidney injury) Code(s): N17.9 - ACUTE KIDNEY FAILURE, UNSPECIFIED Status: Resolved Comment : Back to baseline with fluids - Plan cont current plan of care, continue antibiotics * .
--- NOTE | 2017-07-02 15:21 | PRG ---
DATE OF SERVICE: 07/02/2017 SUBJECTIVE: Ms. Lopes seems to be doing very well. She is not responsive or answering questions, b ut is in no distress and does not grimace or express any discomfort with abdominal exam. Her incisio ns look good and her white count has normalized. Dr. Stevenson has opted not to do a diagnostic colo noscopy, which seems reasonable given her other medical problems and her clinical improvement. I hav e spoken with her medicine doctor and my opinion, she can restart her tube feeds at a slow rate and i f she tolerates that can be advanced. I am going to sign off. If there are any problems over the we ekend, please contact the surgeon on-call.
[2017-07-02] MEDS: Pantoprazole 40 MG VIAL IVP SCH (20:23)
[2017-07-03] MEDS: Piperacillin/Tazobactam 3.375 GM in Sodium Chloride 0.9% 100 ML IVPB SCH ×4 (03:50→21:24)
[2017-07-03 04:42] LABS: #Eosinphils 0.2 thou/uL (0.0-0.7); #Lymphocytes 2.1 thou/uL (1.20-3.40); #Monocytes 0.8 thou/uL (0.11-0.59); #Neutrophils 4.7 thou/uL (1.40-6.50); %Basophils 0.5 % (0.0-1.0); %Eosinophils 2.8 % (0.0-10.0); %Lymphocytes 26.6 % (21.0-51.0); %Monocytes 9.8 % (0.0-10.0); %Neutrophils 60.4 % (42.0-75.0); Hemoglobin 9.6 g/dL (12.0-16.0); Mean Corpuscular HGB CONC 32.9 g/dL (32.0-36.0); Mean Corpuscular Hemoglobin 35.5 pg (27.0-31.0); Mean Platelet Volume 11.4 fL (7.4-10.4); Platelet Count 72 thou/uL (130-400); Red Blood Cell (RBC) Count 2.69 mill/uL (4.20-5.40); White Blood Cell (WBC) Count 7.8 thou/uL (4.8-10.8)
[2017-07-03 04:46] LABS: Anion Gap 7 mmol/L (10-20); BUN (Urea Nitrogen) 16 mg/dL (9.8-20.1); Calc. Creatinine Clearance 119 mL/min (70-130); Calcium 7.8 mg/dL (7.8-10.44); Carbon Dioxide 21 mmol/L (22-29); Chloride 109 mmol/L (98-107); Estimated GFR-MDRD Greater than 90; Glucose 74 mg/dL (70-105); Magnesium 1.4 mg/dL (1.6-2.6); Potassium 3.3 mmol/L (3.5-5.1); Sodium 134 mmol/L (136-145)
--- NOTE | 2017-07-03 08:13 | PRG ---
DATE: 07/02/2017 HISTORY OF PRESENT ILLNESS: This is a 52-year-old black female who is a half-way resident. She has dementia and depression. The patient presented to the hospital with hypotension, sepsis. She un derwent a laparoscopy by Dr. Young 2-3 days ago and was found to have a healthy looking viable righ t colon. The CAT scan does show some pneumatosis. The patient is hypotensive and in shock on admiss ion. Since admission, she is remarkably improved. . She is awake and appears comfortable. Ho wever, she does not verbalize. Vital signs are stable. PHYSICAL EXAMINATION: GENERAL: Appears comfortable, in no distress. She is not moaning or groaning. VITAL SIGNS: Stable. CARDIOVASCULAR: First and second heart sounds are normal. LUNGS: Clear to auscultation. ABDOMEN: Soft to palpate. Abdomen is nondistended. Abdomen is nontender. She does have bowel soun ds and active. RECOMMENDATIONS: Hopefully, we can start the tube feeding tomorrow. In the meantime, we would michele nue IV fluids and other supportive care.
--- NOTE | 2017-07-03 13:40 | PRG ---
DATE OF SERVICE: 07/03/2017 FOLLOWUP VISIT SUBJECTIVE: This is a 52-year-old black female who had dementia, dysphagia, status post PEG tube juan cement. The patient hospitalized because of hypertension, sepsis, and septic shock. The patient's a bdominal CAT scan showing pneumatosis. She underwent laparoscopy and was found to have a healthy via ble right colon, but no evidence of ischemia. The patient continued on IV fluids and vasopressors. She has made good recovery. Her lab test markedly improved. She is back to baseline status. She is awake and does not communicate. OBJECTIVE: VITAL SIGNS: She is afebrile. Her pulse is 109, blood pressure is 120/86. CARDIOVASCULAR SYSTEM: First and second heart sounds normal. LUNGS: Clear to auscultation. ABDOMEN: Soft and nondistended. Abdomen is nontender. Lesser bowel sounds. LABORATORY DATA: From today, WBC 7,800, hemoglobin 9.6, hematocrit 29, MCV 108, and platelet count i s 72,000. Chemistry panel: Sodium 134, potassium 3.3, chloride 109, bicarbonate 21, BUN is back to normal at 16, creatinine 0.71, magnesium 1.4. RECOMMENDATIONS: 1. May start tube feeding from today. Start at 30 mL per hour. We will increase the tube feeding a s tolerated. 2. Follow up labs.
[2017-07-03] MEDS ORDERED: Potassium Chloride 20 MEQ/100 ML PREMIX BAG IVPB SCH (14:15)
--- NOTE | 2017-07-03 14:15 | PDOC.PN ---
- Subjective Encounter Start Date: 07/03/17 Encounter Start Time: 14:12 Subjective: seen and examined --peg tube in place - Objective Vital Signs & Weight: Vital Signs (12 hours) Temp Pulse Resp BP Pulse Ox 07/03/17 08:00 98.1 F 109 H 16 07/03/17 07:09 98.1 F 109 H 16 128/86 95 Weight Admit Weight 180 lb 1 oz Weight 182 lb 14.4 oz I&O: 07/02/17 07/03/17 07/04/17 06:59 06:59 06:59 Intake Total 2400 3150 Output Total 2570 1700 Balance -170 1450 Result Diagrams: 07/03/17 04:09 07/03/17 04:09 Additional Labs: Accuchecks 07/03/17 07/03/17 07/03/17 11:33 06:31 00:36 POC Glucose 83 73 79 07/02/17 07/02/17 19:42 16:06 POC Glucose 70 70 Phys Exam - Physical Examination Constitutional: NAD HEENT: PERRLA, moist MMs, sclera anicteric, TM's clear, oral pharynx no lesions Neck: no nodes, no JVD, supple, full ROM Respiratory: no wheezing, no rales, no rhonchi, clear to auscultation bilateral Cardiovascular: RRR, no significant murmur, no rub Gastrointestinal: soft, non-tender, positive bowel sounds Musculoskeletal: pulses present Dx/Plan (1) Pneumatosis coli Code(s): K63.89 - OTHER SPECIFIED DISEASES OF INTESTINE Status: Acute Comment: s/p lap 06/29 evening, medical rx for now. Abx continue, to per GTube when getting feeds (2) KAE (acute kidney injury) Code(s): N17.9 - ACUTE KIDNEY FAILURE, UNSPECIFIED Status: Resolved Comment : Back to baseline with fluids (3) NSTEMI (non-ST elevated myocardial infarction) Code(s): I21.4 - NON-ST ELEVATION (NSTEMI) MYOCARDIAL INFARCTION Status: Resolved Comment: due to severe sepsis with shock. (4) Cerebral palsy Code(s): G80.9 - CEREBRAL PALSY, UNSPECIFIED Status: Chronic (5) Decubitus ulcer of ankle Code(s): L89.509 - PRESSURE ULCER OF UNSPECIFIED ANKLE, UNSPECIFIED STAGE Status: Chronic Comment: present on admission, agree with wound care finding and report (6) Dementia Code(s): F03.90 - UNSPECIFIED DEMENTIA WITHOUT BEHAVIORAL DISTURBANCE Status: Chronic (7) Hypokalemia Code(s): E87.6 - HYPOKALEMIA Status: Acute - Plan plan discussed w/ family, PT/OT, social service coordinator, respiratory therapy Tube feeding from tommorrow per GI services -: Replete potassium * .
[2017-07-03] MEDS ORDERED: Potassium Chloride 20 MEQ in Sodium Chloride 0.9% 250 ML 250 ML IVPB SCH (15:00)
[2017-07-03] MEDS: Pantoprazole 40 MG VIAL IVP SCH (21:24)
[2017-07-03] MEDS: Acetaminophen 650 MG/20.3 ML UDCUP PER TUBE PRN (22:50)
[2017-07-03] MEDS ORDERED: Morphine 4 MG/ML VIAL SLOW IVP PRN ×3 (23:34→23:35)
[2017-07-04] MEDS: Morphine 4 MG/ML VIAL SLOW IVP PRN
[2017-07-04] MEDS: Piperacillin/Tazobactam 3.375 GM in Sodium Chloride 0.9% 100 ML IVPB SCH ×4 (03:53→21:02)
[2017-07-04 06:25] LABS: #Eosinphils 0.3 thou/uL (0.0-0.7); #Lymphocytes 2.4 thou/uL (1.20-3.40); #Monocytes 1.1 thou/uL (0.11-0.59); #Neutrophils 4.8 thou/uL (1.40-6.50); %Basophils 0.4 % (0.0-1.0); %Eosinophils 3.6 % (0.0-10.0); %Lymphocytes 27.5 % (21.0-51.0); %Monocytes 13.2 % (0.0-10.0); %Neutrophils 55.4 % (42.0-75.0); Mean Corpuscular HGB CONC 33.3 g/dL (32.0-36.0); Mean Platelet Volume 10.9 fL (7.4-10.4); Platelet Count 73 thou/uL (130-400); RBC Distribution Width 12.9 % (11.5-14.5); White Blood Cell (WBC) Count 8.6 thou/uL (4.8-10.8)
[2017-07-04 06:27] LABS: Anion Gap 5 mmol/L (10-20); BUN (Urea Nitrogen) 12 mg/dL (9.8-20.1); Calc. Creatinine Clearance 120 mL/min (70-130); Calcium 7.4 mg/dL (7.8-10.44); Carbon Dioxide 23 mmol/L (22-29); Estimated GFR-MDRD Greater than 90; Glucose 110 mg/dL (70-105); Sodium 134 mmol/L (136-145)
[2017-07-04 06:32] LABS: Chloride 109 mmol/L (98-107)
--- NOTE | 2017-07-04 15:59 | PDOC.PN ---
- Subjective Encounter Start Date: 07/04/17 Encounter Start Time: 15:50 Subjective: f/u for pneumatosis coli and negative laparoscopy. Resumed on TF's Jevity -: 1.2 at 30ml/h increasing to 60ml/h. No new events per nursing. - Objective MAR Reviewed: Yes Vital Signs & Weight: Vital Signs (12 hours) Temp Pulse Resp BP Pulse Ox 07/04/17 08:00 99.3 F 92 18 07/04/17 07:25 99.3 F 92 18 112/75 100 07/04/17 03:57 99.1 F 98 18 117/72 98 Weight Admit Weight 180 lb 1 oz Weight 182 lb 14.4 oz I&O: 07/03/17 07/04/17 07/05/17 06:59 06:59 06:59 Intake Total 3150 2360 30 Output Total 1700 1250 Balance 1450 1110 30 Result Diagrams: 07/04/17 05:26 07/04/17 05:26 Additional Labs: Accuchecks 07/04/17 07/04/17 07/03/17 11:19 05:42 20:27 POC Glucose 98 101 108 07/03/17 16:31 POC Glucose 93 Laboratory Tests 07/02/17 07/02/17 07/03/17 04:08 04:08 04:09 Hgb 9.0 L Potassium 3.5 3.3 L 07/03/17 04:09 Hgb 9.6 L Potassium Phys Exam - Physical Examination alert, aphasic HEENT: PERRLA, oral pharynx no lesions Neck: no JVD, supple Respiratory: no wheezing Cardiovascular: RRR PEG site CDI, surgical incision intact Gastrointestinal: soft, non-tender, no distention, positive bowel sounds contractures noted Musculoskeletal: no edema, pulses present aphasic, bed-bound Skin: normal turgor, cap refill <2 seconds Deviation from normal: Obrien in place with irma urine Dx/Plan (1) Pneumatosis coli Code(s): K63.89 - OTHER SPECIFIED DISEASES OF INTESTINE Status: Acute Comment: s/p lap 06/29 evening, medical rx for now. Abx continue, to per GTube when getting feeds (2) Hypokalemia Code(s): E87.6 - HYPOKALEMIA Status: Acute Comment: Klor-con 40meq PT BID, repeat K+ level in am (3) KAE (acute kidney injury) Code(s): N17.9 - ACUTE KIDNEY FAILURE, UNSPECIFIED Status: Resolved Comment : Back to baseline with fluids (4) Septic shock Code(s): A41.9 - SEPSIS, UNSPECIFIED ORGANISM; R65.21 - SEVERE SEPSIS WITH SEPTIC SHOCK Status: Resolved Comment: IV bolus as needed for presure, appears to be stable, maintenance fluids off, resolved (5) Cerebral palsy Code(s): G80.9 - CEREBRAL PALSY, UNSPECIFIED Status: Chronic (6) Decubitus ulcer of ankle Code(s): L89.509 - PRESSURE ULCER OF UNSPECIFIED ANKLE, UNSPECIFIED STAGE Status: Chronic Comment: present on admission, agree with wound care finding and report (7) Macrocytic anemia Code(s): D53.9 - NUTRITIONAL ANEMIA, UNSPECIFIED Status: Chronic Comment: stable, no acute blood loss - Plan obrien catheter, PT/OT, renal social worker, speech therapy, respiratory therapy, DVT proph w/SCDs Stable currently -: Continue Zosyn 3.375gm IV q6h -: Increase TF's 60ml/h Jevity 1.2 -: Resume home meds -: AM lab: BMP, CBC * Code Status - DNR
[2017-07-04] MEDS: Pantoprazole 40 MG VIAL IVP SCH (21:01)
[2017-07-04] MEDS: Ascorbic Acid 500 mg Chewable Tablet PER TUBE SCH (21:03)
[2017-07-04] MEDS: traZODone HCl 50 MG TAB PER TUBE SCH (21:03)
[2017-07-04] MEDS: Divalproex Sodium 250 MG (DR) TAB PER TUBE SCH (21:03)
[2017-07-04] MEDS: Acetaminophen 650 MG/20.3 ML UDCUP PER TUBE PRN (22:23)
--- NOTE | 2017-07-04 23:28 | PRG ---
DATE OF SERVICE: 07/04/2017 HOSPITAL VISIT NOTE HISTORY OF PRESENT ILLNESS: This is a 52-year-old -[place] female with hypotension, shock an d sepsis. On admission, she was found to have pneumotosis and a CAT scan. A diagnosis negativ e. The patient has remarkably improved. She has returned to her baseline status. She appears comfo rtable. PHYSICAL EXAMINATION: VITAL SIGNS: Stable with pulse of 92, blood pressure 112/70. She appears comfortable. CARDIOVASCULAR SYSTEM: Normal limits. ABDOMEN: Soft and nontender. LABORATORY DATA: From today, WBC 8600, platelet count 73,000, hemoglobin 9. Chem-7, potassium 3, bi lirubin has come back normal at 12 and creatinine 0.70. The patient is tolerating tube feedings from yesterday. She is on 30 mL per hour. RECOMMENDATIONS: 1. Increase tube feeding to 650 per mL. 2. Follow up labs.
[2017-07-05] MEDS: Morphine 4 MG/ML VIAL SLOW IVP PRN (01:11)
[2017-07-05] MEDS: Piperacillin/Tazobactam 3.375 GM in Sodium Chloride 0.9% 100 ML IVPB SCH ×4 (04:42→22:58)
[2017-07-05 05:43] LABS: Anion Gap 6 mmol/L (10-20); BUN (Urea Nitrogen) 9 mg/dL (9.8-20.1); Calc. Creatinine Clearance 112 mL/min (70-130); Calcium 7.3 mg/dL (7.8-10.44); Carbon Dioxide 25 mmol/L (22-29); Chloride 108 mmol/L (98-107); Estimated GFR-MDRD Greater than 90; Glucose 100 mg/dL (70-105); Potassium 3.4 mmol/L (3.5-5.1); Sodium 136 mmol/L (136-145)
[2017-07-05 07:26] LABS: Band 16 % (5-11); Eosinophils 3 % (0-10); Hemoglobin 8.8 g/dL (12.0-16.0); Lymphocytes 23 % (21-51); MDiff Complete? YES; Mean Corpuscular HGB CONC 32.7 g/dL (32.0-36.0); Mean Corpuscular Hemoglobin 35.5 pg (27.0-31.0); Mean Platelet Volume 10.5 fL (7.4-10.4); Monocytes 8 % (0-10); Neutrophil 48 % (42-75); PLT Morphology Comment Appears Decreased; Platelet Count 81 thou/uL (130-400); RBC Distribution Width 13.1 % (11.5-14.5); Red Blood Cell (RBC) Count 2.48 mill/uL (4.20-5.40); White Blood Cell (WBC) Count 8.8 thou/uL (4.8-10.8)
[2017-07-05] MEDS: Cyanocobalamin (Vitamin B-12) 1,000 MCG TAB PER TUBE SCH (09:08)
[2017-07-05] MEDS: Ascorbic Acid 500 mg Chewable Tablet PER TUBE SCH ×2 (09:08→22:57)
[2017-07-05] MEDS: Divalproex Sodium 250 MG (DR) TAB PER TUBE SCH ×2 (09:08→22:57)
[2017-07-05] MEDS: Multivits W-Minerals Liquid 15mL UDCUP PER TUBE SCH (09:09)
--- NOTE | 2017-07-05 12:52 | PDOC.PN ---
- Subjective Encounter Start Date: 07/05/17 Encounter Start Time: 12:30 Subjective: f/u for pneumatosis coli s/p laparoscopy with negative findings. Tx with -: Zosyn, resumption of TF's and monitoring clinically. Nsg reports tolerating -: TF's with low residuals. - Objective MAR Reviewed: Yes Vital Signs & Weight: Vital Signs (12 hours) Temp Pulse Resp BP Pulse Ox 07/05/17 11:31 98 F 73 16 159/65 H 07/05/17 08:00 99.9 F H 105 H 18 07/05/17 07:57 99.9 F H 105 H 18 129/87 97 07/05/17 01:02 99.5 F 110 H 22 H 123/72 98 Weight Admit Weight 180 lb 1 oz Weight 182 lb 14.4 oz I&O: 07/04/17 07/05/17 07/06/17 06:59 06:59 06:59 Intake Total 2360 3050 Output Total 1250 3000 Balance 1110 50 Result Diagrams: 07/05/17 04:30 07/05/17 04:30 Additional Labs: Accuchecks 07/05/17 07/04/17 07/04/17 11:25 19:30 17:02 POC Glucose 120 H 124 H 135 H Laboratory Tests 07/02/17 07/02/17 07/03/17 04:08 04:08 04:09 Hgb 9.0 L Potassium 3.5 3.3 L 07/03/17 04:09 Hgb 9.6 L Potassium Phys Exam - Physical Examination alert, agitated HEENT: PERRLA, oral pharynx no lesions Neck: no JVD, supple Respiratory: no wheezing Cardiovascular: RRR PEG intact Gastrointestinal: soft, no distention, positive bowel sounds Musculoskeletal: no edema, pulses present aphasic, contractures, non-ambulatory Skin: normal turgor, cap refill <2 seconds Deviation from normal: Orr with clear urine Dx/Plan (1) Pneumatosis coli Code(s): K63.89 - OTHER SPECIFIED DISEASES OF INTESTINE Status: Acute Comment: s/p lap 06/29 evening, medical rx for now. Abx continue, to per GTube when getting feeds (2) Hypokalemia Code(s): E87.6 - HYPOKALEMIA Status: Acute Comment: Klor-con 40meq PT BID, repeat K+ level in am (3) KAE (acute kidney injury) Code(s): N17.9 - ACUTE KIDNEY FAILURE, UNSPECIFIED Status: Resolved Comment : Back to baseline with fluids (4) Septic shock Code(s): A41.9 - SEPSIS, UNSPECIFIED ORGANISM; R65.21 - SEVERE SEPSIS WITH SEPTIC SHOCK Status: Resolved Comment: IV bolus as needed for presure, appears to be stable, maintenance fluids off, resolved (5) Cerebral palsy Code(s): G80.9 - CEREBRAL PALSY, UNSPECIFIED Status: Chronic (6) Decubitus ulcer of ankle Code(s): L89.509 - PRESSURE ULCER OF UNSPECIFIED ANKLE, UNSPECIFIED STAGE Status: Chronic Comment: present on admission, agree with wound care finding and report (7) Macrocytic anemia Code(s): D53.9 - NUTRITIONAL ANEMIA, UNSPECIFIED Status: Chronic Comment: stable, no acute blood loss - Plan continue antibiotics, social media director, speech therapy, respiratory therapy, DVT proph w/SCDs Continue Zosyn 3.375gm IV q6h -: Add Flagyl 500mg IV q6h -: Nutritional support with Jevity 1.2 at 60ml/h -: KCL 40meq PT BID -: AM lab: BMP, CBC * .
[2017-07-05] MEDS ORDERED: metroNIDAZOLE 500 MG in Premix Bag 1 BAG IVPB SCH ×2 (13:00→14:00)
[2017-07-05] MEDS: metroNIDAZOLE 500 MG in Premix Bag 1 BAG IVPB SCH (17:39)
[2017-07-05] MEDS: traZODone HCl 50 MG TAB PER TUBE SCH (22:57)
[2017-07-05] MEDS: Pantoprazole 40 MG VIAL IVP SCH (22:58)
[2017-07-06] MEDS: metroNIDAZOLE 500 MG in Premix Bag 1 BAG IVPB SCH ×4 (00:34→17:11)
[2017-07-06] MEDS: Morphine 4 MG/ML VIAL SLOW IVP PRN (00:40)
[2017-07-06] MEDS: Piperacillin/Tazobactam 3.375 GM in Sodium Chloride 0.9% 100 ML IVPB SCH ×4 (03:12→21:50)
[2017-07-06 06:39] LABS: Anion Gap 10 mmol/L (10-20); BUN (Urea Nitrogen) 10 mg/dL (9.8-20.1); Calc. Creatinine Clearance 114 mL/min (70-130); Calcium 7.5 mg/dL (7.8-10.44); Carbon Dioxide 19 mmol/L (22-29); Chloride 104 mmol/L (98-107); Estimated GFR-MDRD Greater than 90; Glucose 85 mg/dL (70-105); Sodium 129 mmol/L (136-145)
[2017-07-06 07:09] LABS: #Eosinphils 0.1 thou/uL (0.0-0.7); #Lymphocytes 2.3 thou/uL (1.20-3.40); #Monocytes 0.8 thou/uL (0.11-0.59); #Neutrophils 4.2 thou/uL (1.40-6.50); %Basophils 0.5 % (0.0-1.0); %Lymphocytes 30.7 % (21.0-51.0); %Monocytes 11.2 % (0.0-10.0); %Neutrophils 56.7 % (42.0-75.0); Hemoglobin 9.2 g/dL (12.0-16.0); MDiff Complete? YES; Macrocytosis MODERATE=16-30 cells (100X) (0-5/hpf); Mean Corpuscular HGB CONC 32.6 g/dL (32.0-36.0); Mean Corpuscular Hemoglobin 35.9 pg (27.0-31.0); Mean Platelet Volume 10.4 fL (7.4-10.4); PLT Morphology Comment Appears Decreased; Platelet Count 82 thou/uL (130-400); Polychromasia MODERATE = 3-4 cells (100X) (0-2/hpf); RBC Distribution Width 14.3 % (11.5-14.5); Red Blood Cell (RBC) Count 2.55 mill/uL (4.20-5.40); White Blood Cell (WBC) Count 7.5 thou/uL (4.8-10.8)
[2017-07-06] MEDS: Divalproex Sodium 250 MG (DR) TAB PER TUBE SCH ×2 (08:13→21:49)
[2017-07-06] MEDS: Ascorbic Acid 500 mg Chewable Tablet PER TUBE SCH ×2 (08:13→21:49)
[2017-07-06] MEDS: Cyanocobalamin (Vitamin B-12) 1,000 MCG TAB PER TUBE SCH (08:13)
[2017-07-06] MEDS: Acetaminophen 650 MG/20.3 ML UDCUP PER TUBE PRN (08:15)
[2017-07-06] MEDS ORDERED: Ketorolac Tromethamine 30 MG/ML VIAL IVP SCH (08:15)
[2017-07-06] MEDS ORDERED: Vancomycin HCl 1 GM in Premix Bag 1 BAG IVPB SCH (08:30)
[2017-07-06] MEDS: Multivits W-Minerals Liquid 15mL UDCUP PER TUBE SCH (10:21)
[2017-07-06] MEDS ORDERED: Sodium Chloride 0.9% 1,000 ML IV SCH (11:45)
[2017-07-06] MEDS: Ketorolac Tromethamine 30 MG/ML VIAL IVP SCH ×2 (12:33→17:12)
[2017-07-06] MEDS: Sodium Chloride 0.9% 1,000 ML IV SCH ×2 (12:46→18:52)
--- NOTE | 2017-07-06 12:51 | RAD ---
TWO VIEW CHEST: Comparison: 03-23-17 Indication: Sepsis. FINDINGS: Re-demonstration of enlarged cardiac silhouette and pulmonary vasculature with a partially imaged rig ht IJ catheter. There is progressive opacity of the mid to inferior lung zones bilaterally was well a s bilateral pleural fluid. IMPRESSION: Progressive opacification favoring edema, with pleural fluid. Superimposed pneumonia not excluded. Co ntinued follow up is warranted. POS: [facility]
[2017-07-06] MEDS ORDERED: Cefepime 2 GM in Sodium Chloride 0.9% 100 ML IVPB SCH (15:00)
--- NOTE | 2017-07-06 15:07 | PDOC.PN ---
- Subjective Encounter Start Date: 07/06/17 Encounter Start Time: 14:50 Subjective: f/u for septic shock suspected colonic source with negative laparoscopy -: on Zosyn and Flagyl. Nsg reports hypotension, fever and tachycardia today. -: +coughing. TF's at 60ml/h - Objective MAR Reviewed: Yes Vital Signs & Weight: Vital Signs (12 hours) Temp Pulse Resp BP Pulse Ox 07/06/17 13:58 88/55 L 07/06/17 12:40 98.8 F 113 H 22 H 79/56 L 94 L 07/06/17 11:26 100.4 F H 113 H 20 89/55 L 94 L 07/06/17 10:00 100.1 F H 110 H 22 H 88/55 L 93 L 07/06/17 08:00 103.1 F H 126 H 20 07/06/17 07:53 103.1 F H 126 H 20 117/61 99 Weight Admit Weight 180 lb 1 oz Weight 185 lb 3.013 oz I&O: 07/05/17 07/06/17 07/07/17 06:59 06:59 06:59 Intake Total 3050 2470 150 Output Total 3000 2425 Balance 50 45 150 Result Diagrams: 07/06/17 04:08 07/06/17 04:08 Additional Labs: Accuchecks 07/06/17 07/06/17 07/05/17 11:01 06:21 20:17 POC Glucose 152 H 100 110 07/05/17 16:24 POC Glucose 123 H Radiology Reviewed by me: Yes (PCXR - bilat pulmonary infiltrates with effusions ) Phys Exam - Physical Examination somnolent, aphasic HEENT: oral pharynx no lesions Neck: no JVD, supple diminished in bases tachycardic PEG site CDI Gastrointestinal: soft, non-tender, no distention, positive bowel sounds Musculoskeletal: pulses present, edema present aphasic Skin: normal turgor, cap refill <2 seconds Dx/Plan (1) Sepsis Code(s): A41.9 - SEPSIS, UNSPECIFIED ORGANISM Status: Acute Comment: Suspected pulmonic source with PNA, add Cefepime and Vancomycin now, IVF's to maintain adequate BP, re-submit blood/Ucx (2) Pneumatosis coli Code(s): K63.89 - OTHER SPECIFIED DISEASES OF INTESTINE Status: Acute Comment: s/p lap 06/29 evening, medical rx for now. Hold TF's x 24h and monitor clinical response to current resuscitation (3) Hypokalemia Code(s): E87.6 - HYPOKALEMIA Status: Acute Comment: Klor-con 40meq PT BID, repeat K+ level in am (4) KAE (acute kidney injury) Code(s): N17.9 - ACUTE KIDNEY FAILURE, UNSPECIFIED Status: Resolved Comment : Back to baseline with fluids (5) Septic shock Code(s): A41.9 - SEPSIS, UNSPECIFIED ORGANISM; R65.21 - SEVERE SEPSIS WITH SEPTIC SHOCK Status: Resolved Comment: IV bolus as needed for presure, resolved (6) Cerebral palsy Code(s): G80.9 - CEREBRAL PALSY, UNSPECIFIED Status: Chronic (7) Decubitus ulcer of ankle Code(s): L89.509 - PRESSURE ULCER OF UNSPECIFIED ANKLE, UNSPECIFIED STAGE Status: Chronic Comment: present on admission, agree with wound care finding and report (8) Macrocytic anemia Code(s): D53.9 - NUTRITIONAL ANEMIA, UNSPECIFIED Status: Chronic Comment: stable, no acute blood loss - Plan obrien catheter, continue antibiotics, respiratory therapy, DVT proph w/SCDs Continue IVF's -: Hold TF's x 24h -: Add Cefepime 2gm IV q12h -: Add Vancomycin 1gm IV q12h -: Check Blood/Ucx * AM lab: BMP, CBC * Code Status - DNR
[2017-07-06] MEDS: Cefepime 2 GM, Syringe 2.5 ML in Sterile Water 10 ML SLOW IVP SCH (16:19)
[2017-07-06] MEDS: Pantoprazole 40 MG VIAL IVP SCH (21:49)
[2017-07-06] MEDS: traZODone HCl 50 MG TAB PER TUBE SCH (21:49)
[2017-07-06] MEDS: Vancomycin HCl 1 GM in Premix Bag 1 BAG IVPB SCH (21:51)
[2017-07-07] MEDS: Sodium Chloride 0.9% 1,000 ML IV SCH ×4 (00:05→23:15)
[2017-07-07] MEDS: Ketorolac Tromethamine 30 MG/ML VIAL IVP SCH ×4 (00:37→16:58)
[2017-07-07] MEDS: metroNIDAZOLE 500 MG in Premix Bag 1 BAG IVPB SCH ×4 (00:38→17:02)
[2017-07-07] MEDS: Piperacillin/Tazobactam 3.375 GM in Sodium Chloride 0.9% 100 ML IVPB SCH ×4 (03:15→20:51)
[2017-07-07] MEDS: Cefepime 2 GM, Syringe 2.5 ML in Sterile Water 10 ML SLOW IVP SCH ×2 (04:51→16:56)
[2017-07-07] MEDS: Acetaminophen 650 MG/20.3 ML UDCUP PER TUBE PRN (05:38)
[2017-07-07 05:44] LABS: Anion Gap 7 mmol/L (10-20); BUN (Urea Nitrogen) 11 mg/dL (9.8-20.1); Calc. Creatinine Clearance 117 mL/min (70-130); Calcium 7.3 mg/dL (7.8-10.44); Carbon Dioxide 21 mmol/L (22-29); Chloride 112 mmol/L (98-107); Estimated GFR-MDRD Greater than 90; Glucose 71 mg/dL (70-105); Potassium 3.8 mmol/L (3.5-5.1); Sodium 136 mmol/L (136-145)
[2017-07-07 06:08] LABS: Anisocytosis SLIGHT = 6-15 cells (100X) (0-5/hpf); Band 23 % (5-11); Eosinophils 2 % (0-10); Hemoglobin 8.7 g/dL (12.0-16.0); Hypochromia SLIGHT = 6-15 cells (100X) (0-5/hpf); Lymphocytes 4 % (21-51); MDiff Complete? YES; Mean Corpuscular HGB CONC 31.5 g/dL (32.0-36.0); Mean Corpuscular Hemoglobin 34.8 pg (27.0-31.0); Mean Platelet Volume 10.3 fL (7.4-10.4); Metamyelocyte 3 % (0-0); Monocytes 5 % (0-10); Neutrophil 63 % (42-75); Platelet Count 84 thou/uL (130-400); Polychromasia SLIGHT = 2-3 cells (100X) (0-2/hpf); RBC Distribution Width 14.4 % (11.5-14.5); Red Blood Cell (RBC) Count 2.49 mill/uL (4.20-5.40)
[2017-07-07] MEDS: Cyanocobalamin (Vitamin B-12) 1,000 MCG TAB PER TUBE SCH (09:39)
[2017-07-07] MEDS: Ascorbic Acid 500 mg Chewable Tablet PER TUBE SCH ×2 (09:40→20:55)
[2017-07-07] MEDS: Multivits W-Minerals Liquid 15mL UDCUP PER TUBE SCH (09:40)
[2017-07-07] MEDS: Divalproex Sodium 250 MG (DR) TAB PER TUBE SCH ×2 (09:40→20:56)
[2017-07-07] MEDS: Vancomycin HCl 1 GM in Premix Bag 1 BAG IVPB SCH ×2 (09:41→20:56)
--- NOTE | 2017-07-07 10:22 | PDOC.PN ---
- Subjective Encounter Start Date: 07/07/17 Encounter Start Time: 10:20 Patient seen and examined. No new complaints. No overnight events. Pt non verbal. Family at bedside. still having cough. No fever. Hypotensive. - Objective MAR Reviewed: Yes Vital Signs & Weight: Vital Signs (12 hours) Temp Pulse Resp BP Pulse Ox 07/07/17 07:57 98.9 F 114 H 18 86/47 L 93 L 07/07/17 00:00 99.7 F H 106 H 20 98/58 L 93 L Weight Admit Weight 180 lb 1 oz Weight 188 lb 14.978 oz I&O: 07/06/17 07/07/17 07/08/17 06:59 06:59 06:59 Intake Total 2470 4010 Output Total 2425 2525 Balance 45 1485 Result Diagrams: 07/07/17 03:47 07/07/17 03:47 Additional Labs: Accuchecks 07/07/17 07/06/17 07/06/17 05:24 19:38 15:57 POC Glucose 79 84 97 07/06/17 11:01 POC Glucose 152 H Radiology Reviewed by me: Yes Phys Exam - Physical Examination pt non verbal HEENT: sclera anicteric Neck: supple Respiratory: no wheezing, no rales Cardiovascular: RRR Gastrointestinal: soft Musculoskeletal: edema present residual paresis Skin: no rash Dx/Plan (1) Fever Code(s): R50.9 - FEVER, UNSPECIFIED Status: Acute (2) Hypotension Status: Acute (3) Sepsis Code(s): A41.9 - SEPSIS, UNSPECIFIED ORGANISM Status: Acute Comment: Suspected pulmonic source with PNA, add Cefepime and Vancomycin now, IVF's to maintain adequate BP, re-submit blood/Ucx (4) KAE (acute kidney injury) Code(s): N17.9 - ACUTE KIDNEY FAILURE, UNSPECIFIED Status: Resolved Comment : Back to baseline with fluids (5) Decubitus ulcer of ankle Code(s): L89.509 - PRESSURE ULCER OF UNSPECIFIED ANKLE, UNSPECIFIED STAGE Status: Chronic Comment: present on admission, agree with wound care finding and report (6) Dementia Code(s): F03.90 - UNSPECIFIED DEMENTIA WITHOUT BEHAVIORAL DISTURBANCE Status: Chronic - Plan cont current plan of care, plan discussed w/ family * . continue Vanc and cefepime. Vanc per pharmacy. culture negative CXR with ? aspiration. will continue to hold TF for one more day. family updated. AM labs. reduce IVF to 75 cc/hr. still hypotensive. Pt is DNR.
[2017-07-07] MEDS ORDERED: VANCOMYCIN IVPB PRN (11:45)
[2017-07-07] MEDS: Pantoprazole 40 MG VIAL IVP SCH (20:55)
[2017-07-07] MEDS: traZODone HCl 50 MG TAB PER TUBE SCH (20:55)
[2017-07-07 21:18] LABS: Vancomycin, Trough 17.6 ug/mL
[2017-07-08] MEDS: Ketorolac Tromethamine 30 MG/ML VIAL IVP SCH ×5 (00:30→23:43)
[2017-07-08] MEDS: metroNIDAZOLE 500 MG in Premix Bag 1 BAG IVPB SCH ×5 (00:33→23:44)
[2017-07-08] MEDS: Piperacillin/Tazobactam 3.375 GM in Sodium Chloride 0.9% 100 ML IVPB SCH ×4 (03:25→21:16)
[2017-07-08] MEDS: Cefepime 2 GM, Syringe 2.5 ML in Sterile Water 10 ML SLOW IVP SCH ×2 (05:04→15:32)
[2017-07-08] MEDS: Acetaminophen 650 MG/20.3 ML UDCUP PER TUBE PRN (05:06)
[2017-07-08 06:17] LABS: Anion Gap 7 mmol/L (10-20); BUN (Urea Nitrogen) 15 mg/dL (9.8-20.1); Calc. Creatinine Clearance 109 mL/min (70-130); Calcium 7.5 mg/dL (7.8-10.44); Carbon Dioxide 19 mmol/L (22-29); Chloride 113 mmol/L (98-107); Estimated GFR-MDRD Greater than 90; Glucose 94 mg/dL (70-105); Potassium 3.8 mmol/L (3.5-5.1); Sodium 135 mmol/L (136-145)
[2017-07-08 06:32] LABS: Hemoglobin 8.6 g/dL (12.0-16.0); Mean Corpuscular HGB CONC 31.9 g/dL (32.0-36.0); Mean Corpuscular Hemoglobin 35.2 pg (27.0-31.0); Mean Platelet Volume 9.9 fL (7.4-10.4); Platelet Count 94 thou/uL (130-400); RBC Distribution Width 14.7 % (11.5-14.5); Red Blood Cell (RBC) Count 2.44 mill/uL (4.20-5.40); White Blood Cell (WBC) Count 4.7 thou/uL (4.8-10.8)
[2017-07-08 06:48] LABS: Anisocytosis SLIGHT = 6-15 cells (100X) (0-5/hpf); Band 26 % (5-11); Lymphocytes 4 % (21-51); MDiff Complete? YES; Macrocytosis MODERATE=16-30 cells (100X) (0-5/hpf); Monocytes 2 % (0-10); Neutrophil 68 % (42-75); Nucleated RBC 1 % (0); PLT Morphology Comment Appears Decreased; Tear Drops SLIGHT = 2-5 cells (100X) (0-1/hpf)
[2017-07-08] MEDS: Divalproex Sodium 250 MG (DR) TAB PER TUBE SCH ×2 (08:46→20:07)
[2017-07-08] MEDS: Ascorbic Acid 500 mg Chewable Tablet PER TUBE SCH ×2 (08:48→20:06)
[2017-07-08] MEDS: Cyanocobalamin (Vitamin B-12) 1,000 MCG TAB PER TUBE SCH (08:48)
[2017-07-08] MEDS: Sodium Chloride 0.9% 1,000 ML IV SCH (08:49)
[2017-07-08] MEDS: Vancomycin HCl 1 GM in Premix Bag 1 BAG IVPB SCH ×2 (08:50→22:46)
[2017-07-08] MEDS: Multivits W-Minerals Liquid 15mL UDCUP PER TUBE SCH (09:57)
[2017-07-08] MEDS ORDERED: Sodium Chloride 0.9% 500 ML IVPB SCH (16:45)
--- NOTE | 2017-07-08 18:25 | PDOC.PN ---
- Subjective Encounter Start Date: 07/08/17 Encounter Start Time: 18:23 Subjective: seen and examined --hypotensive BP in the 70's - Objective Vital Signs & Weight: Vital Signs (12 hours) Temp Pulse Resp BP Pulse Ox 07/08/17 18:17 100 105/69 07/08/17 17:02 96 22 H 88/54 L 100 07/08/17 16:38 98.7 F 103 H 20 74/56 L 100 07/08/17 11:46 97.9 F 88 18 79/55 L 97 07/08/17 08:00 98.7 F 100 18 07/08/17 07:54 98.7 F 100 18 92/60 96 Weight Admit Weight 180 lb 1 oz Weight 187 lb 6.287 oz I&O: 07/07/17 07/08/17 07/09/17 06:59 06:59 06:59 Intake Total 4010 1750 1725 Output Total 2525 351 350 Balance 1485 1399 1375 Result Diagrams: 07/08/17 05:50 07/08/17 05:50 Additional Labs: Accuchecks 07/08/17 07/08/17 16:15 11:14 POC Glucose 60 L 84 Phys Exam - Physical Examination Constitutional: NAD HEENT: PERRLA, moist MMs, sclera anicteric, TM's clear Neck: no nodes, no JVD, supple, full ROM Respiratory: no wheezing, no rales, no rhonchi Cardiovascular: RRR, no significant murmur, no rub Gastrointestinal: soft, non-tender, no distention, positive bowel sounds Dx/Plan (1) Pneumatosis coli Code(s): K63.89 - OTHER SPECIFIED DISEASES OF INTESTINE Status: Acute Comment: s/p lap 06/29 evening, medical rx for now. Hold TF's x 24h and monitor clinical response to current resuscitation (2) KAE (acute kidney injury) Code(s): N17.9 - ACUTE KIDNEY FAILURE, UNSPECIFIED Status: Resolved Comment : Back to baseline with fluids (3) NSTEMI (non-ST elevated myocardial infarction) Code(s): I21.4 - NON-ST ELEVATION (NSTEMI) MYOCARDIAL INFARCTION Status: Resolved Comment: due to severe sepsis with shock. (4) Cerebral palsy Code(s): G80.9 - CEREBRAL PALSY, UNSPECIFIED Status: Chronic (5) Decubitus ulcer of ankle Code(s): L89.509 - PRESSURE ULCER OF UNSPECIFIED ANKLE, UNSPECIFIED STAGE Status: Chronic Comment: present on admission, agree with wound care finding and report (6) Dementia Code(s): F03.90 - UNSPECIFIED DEMENTIA WITHOUT BEHAVIORAL DISTURBANCE Status: Chronic (7) Hypokalemia Code(s): E87.6 - HYPOKALEMIA Status: Acute Comment: Klor-con 40meq PT BID, repeat K+ level in am - Plan plan discussed w/ family, continue antibiotics, PT/OT, health care social worker IVF bolus -: Consider adjusting maintenance fluid -: Resume tube feeding * .
[2017-07-08] MEDS: Dextrose 5 % And 0.9 % NaCl 1,000 ML IV SCH (19:55)
[2017-07-08] MEDS: Morphine 4 MG/ML VIAL SLOW IVP PRN (20:02)
[2017-07-08] MEDS: Pantoprazole 40 MG VIAL IVP SCH (20:06)
[2017-07-08] MEDS: traZODone HCl 50 MG TAB PER TUBE SCH (20:06)
[2017-07-09] MEDS: Morphine 4 MG/ML VIAL SLOW IVP PRN ×2 (00:51→22:43)
[2017-07-09] MEDS: Piperacillin/Tazobactam 3.375 GM in Sodium Chloride 0.9% 100 ML IVPB SCH ×4 (02:53→22:48)
[2017-07-09 04:59] LABS: Anion Gap 11 mmol/L (10-20); BUN (Urea Nitrogen) 21 mg/dL (9.8-20.1); Calc. Creatinine Clearance 79 mL/min (70-130); Calcium 7.3 mg/dL (7.8-10.44); Carbon Dioxide 15 mmol/L (22-29); Chloride 116 mmol/L (98-107); Estimated GFR-MDRD 64; Glucose 69 mg/dL (70-105); Potassium 4.5 mmol/L (3.5-5.1); Sodium 137 mmol/L (136-145)
[2017-07-09 05:05] LABS: Hemoglobin 8.2 g/dL (12.0-16.0); Mean Corpuscular HGB CONC 31.1 g/dL (32.0-36.0); Mean Corpuscular Hemoglobin 35.2 pg (27.0-31.0); Mean Platelet Volume 10.2 fL (7.4-10.4); Platelet Count 78 thou/uL (130-400); RBC Distribution Width 14.9 % (11.5-14.5); Red Blood Cell (RBC) Count 2.31 mill/uL (4.20-5.40); White Blood Cell (WBC) Count 3.9 thou/uL (4.8-10.8)
[2017-07-09 05:06] LABS: Band 43 % (5-11); Eosinophils 3 % (0-10); Lymphocytes 7 % (21-51); MDiff Complete? YES; Metamyelocyte 1 % (0-0); Monocytes 1 % (0-10); Neutrophil 45 % (42-75); Nucleated RBC 1 % (0); PLT Morphology Comment Appears Decreased
[2017-07-09] MEDS: Cefepime 2 GM, Syringe 2.5 ML in Sterile Water 10 ML SLOW IVP SCH ×2 (05:38→15:47)
[2017-07-09] MEDS: metroNIDAZOLE 500 MG in Premix Bag 1 BAG IVPB SCH ×4 (05:39→22:44)
[2017-07-09] MEDS: Ketorolac Tromethamine 30 MG/ML VIAL IVP SCH ×3 (05:40→17:34)
[2017-07-09] MEDS: Dextrose 5 % And 0.9 % NaCl 1,000 ML IV SCH ×3 (05:40→22:16)
[2017-07-09 08:41] VITALS: BMI 26.5
[2017-07-09] MEDS: Divalproex Sodium 250 MG (DR) TAB PER TUBE SCH ×2 (09:27→20:55)
[2017-07-09] MEDS: Cyanocobalamin (Vitamin B-12) 1,000 MCG TAB PER TUBE SCH (09:27)
[2017-07-09] MEDS: Ascorbic Acid 500 mg Chewable Tablet PER TUBE SCH ×2 (09:27→20:56)
[2017-07-09] MEDS: Multivits W-Minerals Liquid 15mL UDCUP PER TUBE SCH (09:27)
[2017-07-09 09:56] LABS: Vancomycin, Trough 32.7 ug/mL
[2017-07-09] MEDS ORDERED: Sodium Chloride 0.9% 500 ML IV SCH (11:30)
[2017-07-09] MEDS: Vancomycin HCl 1 GM in Premix Bag 1 BAG IVPB SCH (12:19)
--- NOTE | 2017-07-09 18:17 | PDOC.PN ---
- Subjective Encounter Start Date: 07/09/17 Encounter Start Time: 18:16 Subjective: seen and examined--still hypotensive -: high peg tube residual noted - Objective Vital Signs & Weight: Vital Signs (12 hours) Temp Pulse Resp BP Pulse Ox 07/09/17 16:39 97.6 F 90 16 94/70 07/09/17 11:36 97.6 F 95 16 84/57 L 96 07/09/17 08:00 97.4 F L 103 H 16 07/09/17 07:21 97.4 F L 103 H 16 68/47 L 97 Weight Admit Weight 180 lb 1 oz Weight 185 lb 3.013 oz I&O: 07/08/17 07/09/17 07/10/17 06:59 06:59 06:59 Intake Total 1750 3185 160 Output Total 351 650 100 Balance 1399 2535 60 Result Diagrams: 07/09/17 04:14 07/09/17 04:14 Additional Labs: Accuchecks 07/09/17 07/08/17 04:59 19:44 POC Glucose 74 79 Phys Exam - Physical Examination Constitutional: NAD HEENT: PERRLA Neck: no nodes, no JVD, supple, full ROM Respiratory: no wheezing, no rhonchi Cardiovascular: RRR Gastrointestinal: soft, positive bowel sounds Dx/Plan (1) Pneumatosis coli Code(s): K63.89 - OTHER SPECIFIED DISEASES OF INTESTINE Status: Acute Comment: s/p lap 06/29 evening, medical rx for now. Hold TF's x 24h and monitor clinical response to current resuscitation (2) KAE (acute kidney injury) Code(s): N17.9 - ACUTE KIDNEY FAILURE, UNSPECIFIED Status: Resolved Comment : Back to baseline with fluids (3) NSTEMI (non-ST elevated myocardial infarction) Code(s): I21.4 - NON-ST ELEVATION (NSTEMI) MYOCARDIAL INFARCTION Status: Resolved Comment: due to severe sepsis with shock. (4) Cerebral palsy Code(s): G80.9 - CEREBRAL PALSY, UNSPECIFIED Status: Chronic (5) Decubitus ulcer of ankle Code(s): L89.509 - PRESSURE ULCER OF UNSPECIFIED ANKLE, UNSPECIFIED STAGE Status: Chronic Comment: present on admission, agree with wound care finding and report (6) Dementia Code(s): F03.90 - UNSPECIFIED DEMENTIA WITHOUT BEHAVIORAL DISTURBANCE Status: Chronic (7) Hypokalemia Code(s): E87.6 - HYPOKALEMIA Status: Acute Comment: Klor-con 40meq PT BID, repeat K+ level in am - Plan continue antibiotics, PT/OT, pediatric social worker start reglan due to very high residual -: IVF bolus--continue IVF at the current rate -: May need a bicarb based infusion -: If reglan doesnt help high residual check KUB * .
[2017-07-09] MEDS ORDERED: Metoclopramide HCl 10 MG/2 ML VIAL IVP SCH (18:30)
[2017-07-09] MEDS: Pantoprazole 40 MG VIAL IVP SCH (20:55)
[2017-07-09] MEDS: traZODone HCl 50 MG TAB PER TUBE SCH (20:56)
[2017-07-09 21:08] LABS: Vancomycin, Random 29.7 ug/mL (See Comment)
[2017-07-09] MEDS ORDERED: Vancomycin HCl 500 MG in Sodium Chloride 0.9% 100 ML IVPB SCH (22:00)
[2017-07-10] MEDS: Cefepime 2 GM, Syringe 2.5 ML in Sterile Water 10 ML SLOW IVP SCH (03:34)
[2017-07-10] MEDS: Morphine 4 MG/ML VIAL SLOW IVP PRN (03:38)
[2017-07-10] MEDS ORDERED: Furosemide 40 MG/4 ML VIAL SLOW IVP SCH (05:00)
[2017-07-10 05:05] LABS: Band 30 % (5-11); Eosinophils 4 % (0-10); Hemoglobin 8.2 g/dL (12.0-16.0); Hypochromia SLIGHT = 6-15 cells (100X) (0-5/hpf); Lymphocytes 13 % (21-51); MDiff Complete? YES; Macrocytosis MODERATE=16-30 cells (100X) (0-5/hpf); Mean Corpuscular HGB CONC 31.6 g/dL (32.0-36.0); Mean Corpuscular Hemoglobin 36.1 pg (27.0-31.0); Mean Platelet Volume 10.2 fL (7.4-10.4); Metamyelocyte 16 % (0-0); Monocytes 3 % (0-10); Neutrophil 33 % (42-75); Nucleated RBC 1 % (0); Ovalocytes SLIGHT = 2-5 cells (100X) (0-1/hpf); PLT Morphology Comment Appears Decreased; Platelet Count 78 thou/uL (130-400); RBC Distribution Width 15.2 % (11.5-14.5); Reactive Lymphocytes 1 % (0-10); Red Blood Cell (RBC) Count 2.28 mill/uL (4.20-5.40); White Blood Cell (WBC) Count 2.9 thou/uL (4.8-10.8)
[2017-07-10 05:10] LABS: Anion Gap 11 mmol/L (10-20); BUN (Urea Nitrogen) 29 mg/dL (9.8-20.1); Calc. Creatinine Clearance 0 mL/min (70-130); Calcium 7.1 mg/dL (7.8-10.44); Carbon Dioxide 12 mmol/L (22-29); Chloride 120 mmol/L (98-107); Estimated GFR-MDRD 26; Glucose 78 mg/dL (70-105); Potassium 5.5 mmol/L (3.5-5.1); Sodium 137 mmol/L (136-145)
[2017-07-10] MEDS: metroNIDAZOLE 500 MG in Premix Bag 1 BAG IVPB SCH (05:25)
--- NOTE | 2017-07-10 07:48 | PDOC.PN ---
- Subjective Encounter Start Date: 07/10/17 Encounter Start Time: 07:46 Patient seen and examined. No new complaints. No overnight events sister at bedside. pt with agonal breaths. - Objective MAR Reviewed: Yes Vital Signs & Weight: Vital Signs (12 hours) Temp Pulse Resp BP Pulse Ox 07/10/17 04:05 98.2 F 101 H 28 H 68/42 L 94 L 07/10/17 04:00 94 L 07/09/17 22:57 84/52 L 07/09/17 20:00 97.7 F 91 18 72/42 L 97 Weight Admit Weight 180 lb 1 oz Weight 3.034 oz I&O: 07/09/17 07/10/17 07/11/17 06:59 06:59 06:59 Intake Total 3185 3259 Output Total 650 200 Balance 2535 3059 Result Diagrams: 07/10/17 03:48 07/10/17 03:48 Additional Labs: Accuchecks 07/10/17 07/09/17 07/09/17 04:18 16:34 11:36 POC Glucose 98 92 121 H 07/08/17 07/07/17 04:46 20:49 POC Glucose 61 L 56 L* Phys Exam - Physical Examination pt with agonal breath HEENT: sclera anicteric Respiratory: wheezing present Cardiovascular: RRR Musculoskeletal: edema present Skin: no rash Dx/Plan (1) Fever Code(s): R50.9 - FEVER, UNSPECIFIED Status: Acute (2) Hypotension Status: Acute (3) Sepsis Code(s): A41.9 - SEPSIS, UNSPECIFIED ORGANISM Status: Acute Comment: Suspected pulmonic source with PNA, add Cefepime and Vancomycin now, IVF's to maintain adequate BP, re-submit blood/Ucx (4) KAE (acute kidney injury) Code(s): N17.9 - ACUTE KIDNEY FAILURE, UNSPECIFIED Status: Resolved Comment : Back to baseline with fluids (5) Decubitus ulcer of ankle Code(s): L89.509 - PRESSURE ULCER OF UNSPECIFIED ANKLE, UNSPECIFIED STAGE Status: Chronic Comment: present on admission, agree with wound care finding and report (6) Dementia Code(s): F03.90 - UNSPECIFIED DEMENTIA WITHOUT BEHAVIORAL DISTURBANCE Status: Chronic - Plan plan discussed w/ family * . pt with agonal breaths. DNR sister at bedside will make her comfort measures only. DC abx, DC IVF DC IV continue O2 continue pain and anxiety control. Family updated. consult hospice.
[2017-07-10 07:59] VITALS: BP 77/54; TEMP 97.4
--- NOTE | 2017-07-10 08:31 | RAD ---
PORTABLE CHEST ONE VIEW: 07/10/2017 4:49 a.m. HISTORY: Dyspnea. Hypoxia. Hypotension. COMPARISON: 08/06/2016 FINDINGS: Right internal jugular central line remains in place with the tip in the projection of the cavoatrial junction. There is worsening of right-sided pleural effusion. There is pulmonary vascular congesti on. No pneumothoraces are identified. The heart is enlarged. POS: [facility]
[2017-07-10] MEDS: Divalproex Sodium 250 MG (DR) TAB PER TUBE SCH ×2 (09:00→20:29)
[2017-07-10] MEDS: Cyanocobalamin (Vitamin B-12) 1,000 MCG TAB PER TUBE SCH (09:00)
[2017-07-10] MEDS: Multivits W-Minerals Liquid 15mL UDCUP PER TUBE SCH (09:00)
[2017-07-10] MEDS: Ascorbic Acid 500 mg Chewable Tablet PER TUBE SCH ×2 (09:00→20:29)
[2017-07-10] MEDS: Lorazepam 2 MG/ML VIAL SLOW IVP PRN ×2 (12:20→15:36)
[2017-07-10] MEDS: Metoclopramide HCl 10 MG/2 ML VIAL IVP SCH ×2 (12:21→20:29)
--- NOTE | 2017-07-10 12:52 | EKG ---
Test Reason : Blood Pressure : / mmHG Vent. Rate : 124 BPM Atrial Rate : 124 BPM P-R Int : 122 ms QRS Dur : 058 ms QT Int : 338 ms P-R-T Axes : 029 050 042 degrees QTc Int : 485 ms Poor data quality, interpretation may be adversely affected Sinus tachycardia with Fusion complexes Low voltage QRS Septal infarct , age undetermined Nospecific ST-T segment abnormalities Abnormal ECG Confirmed by FRANKLIN MARIE ([id number]), copy editor MARCOS FATIMA ([id number]) on 07/10/2017 12:52:10 PM Referred By: Confirmed By:FRANKLIN MARIE
[2017-07-10] MEDS: Pantoprazole 40 MG VIAL IVP SCH (20:29)
[2017-07-10] MEDS: traZODone HCl 50 MG TAB PER TUBE SCH (20:30)
[2017-07-10] MEDS ORDERED: Vancomycin HCl 1 GM in Premix Bag 1 BAG IVPB SCH (22:00)
[2017-07-11] MEDS: Lorazepam 2 MG/ML VIAL SLOW IVP PRN ×3 (04:53→14:20)
[2017-07-11] MEDS: Metoclopramide HCl 10 MG/2 ML VIAL IVP SCH (10:32)
[2017-07-11] MEDS: Multivits W-Minerals Liquid 15mL UDCUP PER TUBE SCH (10:34)
[2017-07-11] MEDS: Ascorbic Acid 500 mg Chewable Tablet PER TUBE SCH (10:34)
[2017-07-11] MEDS: Cyanocobalamin (Vitamin B-12) 1,000 MCG TAB PER TUBE SCH (10:34)
[2017-07-11] MEDS: Divalproex Sodium 250 MG (DR) TAB PER TUBE SCH (10:34)
--- NOTE | 2017-07-11 13:29 | PDOC.PN ---
- Subjective Encounter Start Date: 07/11/17 Encounter Start Time: 13:26 Patient seen and examined. Pt with agonal breaths family doesnot want hospice consult. - Objective Vital Signs & Weight: Vital Signs (12 hours) Temp Pulse Resp 07/11/17 08:00 97.4 F L 100 28 H Weight Admit Weight 180 lb 1 oz Weight 3.034 oz I&O: 07/10/17 07/11/17 07/12/17 06:59 06:59 06:59 Intake Total 3259 Output Total 200 50 Balance 3059 -50 Result Diagrams: 07/10/17 03:48 07/10/17 03:48 Phys Exam - Physical Examination agonal breaths. Musculoskeletal: edema present Skin: no rash Dx/Plan (1) Fever Code(s): R50.9 - FEVER, UNSPECIFIED Status: Acute (2) Hypotension Status: Acute (3) Sepsis Code(s): A41.9 - SEPSIS, UNSPECIFIED ORGANISM Status: Acute Comment: Suspected pulmonic source with PNA, add Cefepime and Vancomycin now, IVF's to maintain adequate BP, re-submit blood/Ucx (4) KAE (acute kidney injury) Code(s): N17.9 - ACUTE KIDNEY FAILURE, UNSPECIFIED Status: Resolved Comment : Back to baseline with fluids (5) Decubitus ulcer of ankle Code(s): L89.509 - PRESSURE ULCER OF UNSPECIFIED ANKLE, UNSPECIFIED STAGE Status: Chronic Comment: present on admission, agree with wound care finding and report (6) Dementia Code(s): F03.90 - UNSPECIFIED DEMENTIA WITHOUT BEHAVIORAL DISTURBANCE Status: Chronic - Plan * . pt with agonal breaths. continue comfort measures. family doesnot want hospice consult.
--- NOTE | 2017-07-12 00:26 | DS ---
DATE OF ADMISSION: 06/29/2017 DATE OF : 07/11/2017 around 4 p.m. She at 1600 on 07/11/2017. 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 CONSULTATIONS: Dr. Yuan from Pulmonology, Dr. Young from General Surgery, Dr. Stevenson from GI . PROCEDURES: Diagnostic laparoscopy with a viable colon done by Dr. Young on 06/30/2017. HOSPITAL COURSE: This is a 52-year-old female with past medical history of traumatic brain injury, c hronic aphasia, dementia, came to the hospital with nausea and vomiting and she was admitted for resu scitation and all the cultures remained negative. She also had diagnostic laparoscopy, was found to have a viable colon, but she was treated for septic shock secondary to colonic source and initially w as getting better, but at some point she started having cough and had possible aspiration event and w as not doing well. Family was aware of that she is not having good quality of life and did not want to have much aggressive measures. Patient was monitored and continued on antibiotic, but she did not show any significant improvement with deterioration of health over the course of the admission. Marbin quevedo decided to make her comfort measures only. They declined to have a hospice evaluation and patien t was kept comfortable with medicated pain control and anxiety control and patient on 07/11 a t 1600 in the presence of the family. Date and time of 07/11/2017 at 1600 hours.
== END 2017-07-11 18:45 | disposition expired | DRG 853 ==
LOC: ERS 10:10 → SDC/OP 19:58 → IMCU/EMU 22:06 → T4-A 07-01 18:03
PROVIDERS: ADMIT Internal Medicine Infectious Disease; ATTEND Internal Medicine Infectious Disease
PROC: 0WJP4ZZ Inspection of Gastrointestinal Tract, Percutaneous Endoscopic Approach (ICD-10-PCS; principal; 2017-06-29)
PROC: 02HV33Z Insertion of Infusion Device into Superior Vena Cava, Percutaneous Approach (ICD-10-PCS; 2017-06-29)
DX: A41.9 Sepsis, unspecified organism (principal); R65.21 Severe sepsis with septic shock; I21.4 Non-ST elevation (NSTEMI) myocardial infarction; G93.49 Other encephalopathy; K65.9 Peritonitis, unspecified; L89.504 Pressure ulcer of unspecified ankle, stage 4; N17.9 Acute kidney failure, unspecified; I24.8 Other forms of acute ischemic heart disease; R47.01 Aphasia; K63.89 Other specified diseases of intestine; E86.0 Dehydration; Z51.5 Encounter for palliative care; R13.10 Dysphagia, unspecified; G83.9 Paralytic syndrome, unspecified; F03.90 Unspecified dementia, unspecified severity, without behavioral disturbance, psychotic disturbance, mood disturbance, and anxiety; E87.6 Hypokalemia; D64.9 Anemia, unspecified; K21.9 Gastro-esophageal reflux disease without esophagitis; G80.9 Cerebral palsy, unspecified; D53.9 Nutritional anemia, unspecified; F31.9 Bipolar disorder, unspecified; F41.9 Anxiety disorder, unspecified; Z66 Do not resuscitate; Z87.820 Personal history of traumatic brain injury
CPT/HCPCS: 36415; 36416; 36556; 51702; 71010; 74177; 80048; 80053; 80202; 81003; 81015; 82274; 82550; 82553; 83605; 83630; 83690; 83735; 84100; 84484; 85025; 85060; 85610; 85730; 86850; 86900; 86901; 86922; 87040; 87045; 87046; 87086; 87149; 87324; 87449; 87899; 93005; 96361; 96365; 96368; 96375; A4216; C9113; J0131; J0692; J1885; J1940; J2060; J2250; J2270; J2405; J2543; J2765; J3010; J3370; J3475; J3480; J7050; P9045